=== PATIENT | male | born 1940 | race Caucasian/White ===

== ENCOUNTER 2017-03-16 23:29 | Emergency (ER) | payer OTHER, BC ==
[2017-03-16 23:44] VITALS: BP 142/77; PULSE 67; TEMP 97.9; BMI 31.4
--- NOTE | 2017-03-17 01:35 | PDOC ---
Attending Attestation - Resident Resident Name: Leilani Liz - ED Attending Attestation I have performed the following: I have examined & evaluated the patient, The case was reviewed & discussed with the resident, I agree w/resident's findings & plan - HPI HPI: 03/17/17 04:51 Pt comes with tinnitus that is worse than usual and he is nervous and wanted it checked out. - Physicial Exam PE: 03/17/17 04:51 Agree with resident exam - Medical Decision Making 03/17/17 04:[address] normal and CBC normal. Chemistry pending; lab called and they lost the specimen. Pt refusing to give another specimen. Signed out AMA.
--- NOTE | 2017-03-17 02:34 | PDOC ---
History of Present Illness - General Chief Complaint: Blood Pressure Problem Stated Complaint: BLOOD PRESSURE Time Seen by Provider: 03/17/17 01:54 EDT History Source: Patient - History of Present Illness Initial Comments: 03/17/17 02:29 Patient is a 76 yo M with PMHx of HTN, BPH, COPD, tinnitus, presented to the ED because of increased ringing in his ear and "hearing his heartbeat" in his ear that started around 11pm which resolved. Patient said the ringing in his ear is normal but was more intense today. Patient denies dizziness, sob, chest pain, weakness, visual deficits, runny nose and palpitations. Past History - Past Medical History Allergies/Adverse Reactions: Allergies Allergy/AdvReac Type Severity Reaction Status Date / Time No Known Allergies Allergy Verified 03/16/17 23:44 Home Medications: Ambulatory Orders Lisinopril [Prinivil -] 40 mg PO BID 11/10/11 Propranolol HCl [Inderal LA] 160 mg PO DAILY 11/10/11 Salmeterol/Fluticasone [Advair 250Mcg/50Mcg -] 1 each IH BID 11/10/11 Cholecalciferol (Vitamin D3) [Vitamin D3] 2,000 unit PO DAILY 09/15/15 Furosemide [Lasix -] 40 mg PO DAILY 09/15/15 Multivitamin with Minerals [Icaps Plus] 1 each PO DAILY 09/15/15 Nifedipine [Nifedipine ER] 60 mg PO HS 09/15/15 [place] Xtr/Zinc Picolin [[place] Ext 160 mg Cap] 1 each PO DAILY 09/25 Aspirin [Aspirin EC] 81 mg PO ASDIR #0 09/16/15 Omeprazole 20 mg PO DAILY 03/17/17 Cancer: Yes (SKIN) COPD: Yes GI Disorders: Yes (PEPTIC ULCER, DIVERTICILOSIS) Disorders: Yes (BPH, UROSEPSIS) HTN: Yes - Surgical History Cardiac Surgery: Yes (BILATERAL) - Suicide/Smoking/Psychosocial Hx Smoking Status: No Smoking History: Never smoked Have you smoked in the past 12 months: No Number of Cigarettes Smoked Daily: 0 If you are a former smoker, when did you quit?: 20 YEARS AGO Information on smoking cessation initiated: No Hx Alcohol Use: Yes (WINE WITH DINNER) Drug/Substance Use Hx: No Substance Use Type: None Review of Systems - Review of Systems Constitutional: No: Chills, Fever, Weakness HEENTM: Yes: Tinnitus. No: Recent change in vision, Ear Discharge, Nose Congestion Respiratory: No: Cough, Shortness of Breath, Wheezing Cardiac (ROS): No: Chest Pain, Lightheadedness, Palpitations, Syncope ABD/GI: No: Diarrhea, Nausea : No: Burning, Dysuria Neurological: No: Headache, Numbness, Tingling *Physical Exam - Vital Signs Last Vital Signs Temp Pulse Resp BP Pulse Ox 97.9 F 67 20 142/77 99 03/16/17 23:41 03/16/17 23:41 03/16/17 23:41 03/16/17 23:41 03/16/17 23:41 - Physical Exam Comments: 03/17/17 02:38 General: Patient is no acute distress, A/o x 3 HEENT: hearing aids, outer ears without lesions, tympanic canals normal with wax, no erythema or bulge. CV: RRR, No murmurs appreciated Lungs: CTA b/l no rales rhonchi or wheezing Abd: NT, ND, nomoactive bowel sounds Ext: No bruising, edema 03/17/17 04:08 ED Treatment Course - LABORATORY CBC & Chemistry Diagram: 03/17/17 02:40 03/17/17 02:40 - RADIOLOGY Radiology Studies Ordered: Category Date Time Status HEAD CT WITHOUT CONTRAST [CT] Stat CT Scan 03/17/17 02:05 Ordered Medical Decision Making - Medical Decision Making 03/17/17 04:08 #Worsening Tinnitus Heat CT CBC, CMP EKG 03/17/17 04:[address] unremarkable for acute changes CBC WNL EKG no signs of acute infarcts. 03/17/17 04:48 CMP hemolyzed and was re-ordered. Patient refused further care and left against medical advise. *DC/Admit/Observation/Transfer Diagnosis at time of Disposition: Tinnitus Qualifiers: Laterality: unspecified laterality Qualified Code(s): H93.19 - Tinnitus, unspecified ear - Discharge Dispostion Disposition: AGAINST MEDICAL ADVICE Admit: No - Referrals Referrals: Gianni Chacon MD [Primary Care Provider] - - Patient Instructions Additional Instructions: Call your doctor if you're symptoms are worsening. If it is an emergency, go to your nearest emergency department.
[2017-03-17 02:54] LABS: MCH 32.6 pg (25.7-33.7); MCHC 33.5 g/dl (32.0-35.9); MEAN CELL VOLUME 97.1 fl (80-96); MEAN PLT VOLUME 8.1 fl (7.5-11.1); PLATELET COUNT 185 K/MM3 (134-434); RDW 12.6 % (11.9-15.9); WHITE BLOOD COUNT 5.4 K/mm3 (4.0-10.0)
[2017-03-17 05:11] LABS: ANION GAP 10 (8-16); CO2 25 mmol/L (21-32); CREATININE 1.3 mg/dL (0.7-1.3); GLUCOSE,RANDOM 104 mg/dL (74-106)
[2017-03-17 05:12] LABS: ALBUMIN 3.7 g/dl (3.4-5.0); BILIRUBIN,TOTAL 0.5 mg/dL (0.2-1.0); CALCIUM 8.3 mg/dL (8.5-10.1); SGOT/AST 20 U/L (15-37); SGPT/ALT 27 U/L (12-78); TOT PROT 6.4 g/dl (6.4-8.2)
[2017-03-17 05:13] LABS: ALK PHOS 79 U/L (45-117)
--- NOTE | 2017-03-20 14:12 | EKG ---
Test Reason : Blood Pressure : / mmHG Vent. Rate : 064 BPM Atrial Rate : 064 BPM P-R Int : 174 ms QRS Dur : 080 ms QT Int : 396 ms P-R-T Axes : 049 -08 038 degrees QTc Int : 408 ms NORMAL SINUS RHYTHM NORMAL ECG WHEN COMPARED WITH ECG OF 10-NOV-2011 17:46, NO SIGNIFICANT CHANGE WAS FOUND Confirmed by EMEKA SANCHEZ MD ([id number]) on 03/20/2017 2:11:36 PM Referred By: Confirmed By:EMEKA SANCHEZ MD
== END 2017-03-17 05:42 | disposition left against medical advice (07) ==
LOC: JER 23:29
DX: H93.19 Tinnitus, unspecified ear (principal); I10 Essential (primary) hypertension; Z87.11 Personal history of peptic ulcer disease; Z85.828 Personal history of other malignant neoplasm of skin
CPT/HCPCS: 36415; 70450-TC; 80053; 85027; 93005; 93010; 99281-25; 99282-25

== ENCOUNTER 2017-12-22 08:57 | Inpatient (IN) | payer OTHER, BC ==
[2017-12-22 09:06] VITALS: BMI 30.7
--- NOTE | 2017-12-22 09:15 | PDOC ---
History of Present Illness - General Chief Complaint: Shortness of Breath Stated Complaint: COPD,AMS Time Seen by Provider: 12/22/17 09:14 History Source: Patient Exam Limitations: No Limitations - History of Present Illness Initial Comments: Mr. Coronado is a 77 yo M with a hx of HTN and COPD who presents to the emergency department with SOB. Per the patient, he had an URI 10 days ago. Since then, he ghas been feeling increasingly congested and increased SOB. On Saturday, he states he had weakness and the development of a fever and increasing weakness. He states he used his albuterol 3x on Saturday, 2x on Saturday, and 1x on day of presentation. Denies the following: chest pain, headaches, dizziness, lightheadness, abdominal pain, dysuria, diarrhea, nausea, vomiting, hematuria, and leg swelling/pain. Endorses fever. States he took 1x tylenol at approximately 8am. Denies hx of VA and CVA. Pmhx: HTN, COPD Shx: None Allergies: None Social hx: quit smoking 1995. Drinks alcohol socially. Denies drug use. 12/25/17 19:13 Past History - Past Medical History Allergies/Adverse Reactions: Allergies Allergy/AdvReac Type Severity Reaction Status Date / Time No Known Allergies Allergy Verified 12/22/17 08:59 Home Medications: Ambulatory Orders Lisinopril [Prinivil -] 40 mg PO BID 11/10/11 Propranolol HCl [Inderal LA] 160 mg PO DAILY 11/10/11 Salmeterol/Fluticasone [Advair 250Mcg/50Mcg -] 1 each IH BID 11/10/11 Cholecalciferol (Vitamin D3) [Vitamin D3] 2,000 unit PO DAILY 09/15/15 Furosemide [Lasix -] 40 mg PO DAILY 09/15/15 Multivitamin with Minerals [Icaps Plus] 1 each PO DAILY 09/15/15 Nifedipine [Nifedipine ER] 60 mg PO HS 09/15/15 Aspirin [Aspirin EC] 81 mg PO ASDIR #0 09/16/15 Omeprazole 20 mg PO DAILY 03/17/17 [place] Xtr/Zinc Picolin [[place] Capsule] 1 each PO DAILY 12/22/17 Cancer: Yes (SKIN) COPD: Yes GI Disorders: Yes (PEPTIC ULCER, DIVERTICILOSIS) Disorders: Yes (BPH, UROSEPSIS) HTN: Yes - Surgical History Cardiac Surgery: Yes (BILATERAL) - Suicide/Smoking/Psychosocial Hx Smoking Status: No Smoking History: Never smoked Have you smoked in the past 12 months: No Number of Cigarettes Smoked Daily: 0 If you are a former smoker, when did you quit?: 20 YEARS AGO Information on smoking cessation initiated: No Hx Alcohol Use: Yes (WINE WITH DINNER) Drug/Substance Use Hx: No Substance Use Type: None Review of Systems - Review of Systems Able to Perform ROS?: Yes Constitutional: Yes: Chills, Fever. No: Diaphoresis HEENTM: No: Recent change in vision, Nose Pain, Throat Pain, Mouth Pain Respiratory: Yes: Shortness of Breath. No: Cough, Hemoptysis Cardiac (ROS): No: Chest Pain, Edema, Lightheadedness, Palpitations, Syncope ABD/GI: No: Constipated, Diarrhea, Nausea, Rectal Bleeding, Vomiting, Tarry Stools : No: Burning, Dysuria, Hematuria Musculoskeletal: No: Back Pain Integumentary: No: Rash Neurological: No: Headache Psychiatric: No: Stressors Endocrine: No: Unexplained Weight Gain Hematologic/Lymphatic: No: Anemia *Physical Exam - Vital Signs Last Vital Signs Temp Pulse Resp BP Pulse Ox 101.1 F H 94 H 28 H 117/56 86 L 12/22/17 09:01 12/22/17 09:01 12/22/17 09:01 12/22/17 09:01 12/22/17 09:01 - Physical Exam General Appearance: Yes: Nourished, Appropriately Dressed, Mild Distress HEENT: positive: EOMI, TED, Normal Voice Neck: negative: Lymphadenopathy (R), Lymphadenopathy (L) Respiratory/Chest: positive: Other (tachypnea with decreased breath sounds bilaterally. ) Cardiovascular: positive: Regular Rhythm, S1, S2, Tachycardia Vascular Pulses: Dorsalis-Pedis (R): 3+, Doralis-Pedis (L): 3+ Gastrointestinal/Abdominal: positive: Normal Bowel Sounds. negative: Tender Lymphatic: negative: Adenopathy Musculoskeletal: positive: Normal Inspection. negative: CVA Tenderness Extremity: positive: Normal Capillary Refill, Normal Inspection Integumentary: positive: Normal Color, Dry, Warm Neurologic: positive: package designer II-XII NML intact, Fully Oriented, Alert, Normal Mood/ Affect, Motor Strength 5/5 Heart Score/ECG Review - ECG Intrepretation Comment:: vent rate: 89 bpm, UT 146 ms, QRS 72 ms. No changes from previous EKG. No acute changes suggesting VA. ED Treatment Course - LABORATORY CBC & Chemistry Diagram: 12/25/17 06:22 12/25/17 06:22 Medical Decision Making - Medical Decision Making 77 yo M with a hx of COPD and HTN presenting with SOB s/p URI 10 days ago with fever and increasing use of albuterol. ddx: VA, PE, PNA, COPD exacerbation, sepsis of other infectious etiology. Initial vitals: Initial Vital Signs Temp Pulse Resp BP Pulse Ox 101.1 F H 94 H 28 H 117/56 86 L 12/22/17 09:01 12/22/17 09:01 12/22/17 09:01 12/22/17 09:01 12/22/17 09:01 Work up: Laboratory Tests 12/22/17 12/22/17 12/22/17 09:20 09:20 09:20 WBC 16.1 H RBC 3.89 L Hgb 12.6 Hct 37.1 D MCV 95.3 MCH 32.3 MCHC 33.8 RDW 12.9 Plt Count 230 D MPV 8.3 Absolute Neuts (auto) 14.0 Neutrophils % 86.5 H Lymphocytes % 4.5 L Monocytes % 7.7 Eosinophils % 0.2 Basophils % 1.1 Nucleated RBC % 0 PT with INR 12.30 INR 1.09 PTT (Actin FS) 22.4 L Anticoagulation Therapy Puncture Site ABG pH ABG pCO2 at Pt Temp ABG pO2 at Pt Temp ABG HCO3 ABG O2 Sat (Measured) ABG O2 Content ABG Base Excess Arturo Test VBG pH 7.40 POC VBG pCO2 36.8 L POC VBG pO2 29.3 Mixed VBG HCO3 22.8 Carboxyhemoglobin Methemoglobin O2 Delivery Device Oxygen Flow Rate Vent Mode Vent Rate Mechanical Rate Pressure Support Vent Sodium Potassium Chloride Carbon Dioxide Anion Gap BUN Creatinine Creat Clearance w eGFR Random Glucose Lactic Acid Calcium Total Bilirubin AST ALT Alkaline Phosphatase Troponin I Total Protein Albumin 12/22/17 12/22/17 12/22/17 09:20 09:20 09:20 WBC RBC Hgb Hct MCV MCH MCHC RDW Plt Count MPV Absolute Neuts (auto) Neutrophils % Lymphocytes % Monocytes % Eosinophils % Basophils % Nucleated RBC % PT with INR INR PTT (Actin FS) Anticoagulation Therapy Puncture Site ABG pH ABG pCO2 at Pt Temp ABG pO2 at Pt Temp ABG HCO3 ABG O2 Sat (Measured) ABG O2 Content ABG Base Excess Arturo Test VBG pH POC VBG pCO2 POC VBG pO2 Mixed VBG HCO3 Carboxyhemoglobin Methemoglobin O2 Delivery Device Oxygen Flow Rate Vent Mode Vent Rate Mechanical Rate Pressure Support Vent Sodium Cancelled 140 Potassium Cancelled 4.5 Chloride Cancelled 107 Carbon Dioxide Cancelled 22 Anion Gap Cancelled 11 BUN Cancelled 41 H Creatinine Cancelled 2.0 H Creat Clearance w eGFR Cancelled 32.39 Random Glucose Cancelled 132 H D Lactic Acid 2.3 H* Calcium Cancelled 8.4 L Total Bilirubin Cancelled 1.1 H AST Cancelled 56 H D ALT Cancelled 47 D Alkaline Phosphatase Cancelled 109 Troponin I < 0.02 Total Protein Cancelled 5.9 L Albumin Cancelled 2.7 L 12/22/17 09:44 WBC RBC Hgb Hct MCV MCH MCHC RDW Plt Count MPV Absolute Neuts (auto) Neutrophils % Lymphocytes % Monocytes % Eosinophils % Basophils % Nucleated RBC % PT with INR INR PTT (Actin FS) Anticoagulation Therapy No Result Required. Puncture Site Right radial ABG pH 7.45 ABG pCO2 at Pt Temp 32.0 L ABG pO2 at Pt Temp 60.0 L ABG HCO3 22.2 ABG O2 Sat (Measured) 91.5 ABG O2 Content 14.6 L ABG Base Excess No Result Required. Arturo Test Positive VBG pH POC VBG pCO2 POC VBG pO2 Mixed VBG HCO3 Carboxyhemoglobin 2.1 H Methemoglobin 1.5 O2 Delivery Device No Result Required. Oxygen Flow Rate Yes Vent Mode No Result Required. Vent Rate No Result Required. Mechanical Rate No Result Required. Pressure Support Vent No Result Required. Sodium Potassium Chloride Carbon Dioxide Anion Gap BUN Creatinine Creat Clearance w eGFR Random Glucose Lactic Acid Calcium Total Bilirubin AST ALT Alkaline Phosphatase Troponin I Total Protein Albumin CXR showed right infiltrate. He was given duoneb TID and steroids. In addition, given his age, presenting symptoms, and medical hx of COPD, we placed him on BIPAP due to these populations deteriorating rapidly when on non rebreather. He was admitted through Dr. Chacon. 12/25/17 19:52 12/25/17 19:54 *DC/Admit/Observation/Transfer Diagnosis at time of Disposition: Pneumonia, COPD exacerbation, Fever, SIRS (systemic inflammatory response syndrome) - Discharge Dispostion Condition at time of disposition: Stable - Referrals - Patient Instructions - Post Discharge Activity
[2017-12-22] MEDS ORDERED: methylPREDNISolone NA SUCC 125 MG/2 ML VIAL IVPUSH ONE (09:22)
[2017-12-22] MEDS ORDERED: ACETAMINOPHEN 1000 MG/100 ML VIAL (NON FORMULARY) IVPB ONE (09:23)
[2017-12-22] MEDS: ALBUTEROL SO4 2.5/IPRATROPIUM 0.5 INH SOL 3 ML VIAL.NEB. NEB SCH ×6 (09:30→21:00)
[2017-12-22] MEDS ORDERED: ALBUTEROL SO4 2.5/IPRATROPIUM 0.5 INH SOL 3 ML VIAL.NEB. NEB ONE ×2 (09:31→10:02)
[2017-12-22 09:35] LABS: BASO % 1.1 % (0-2.0); EOS % 0.2 % (0-4.5); HEMATOCRIT 37.1 % (35.4-49); HEMOGLOBIN 12.6 GM/dL (11.7-16.9); LYMPH % 4.5 % (8-40); MCH 32.3 pg (25.7-33.7); MCHC 33.8 g/dl (32.0-35.9); MEAN CELL VOLUME 95.3 fl (80-96); MEAN PLT VOLUME 8.3 fl (7.5-11.1); MONO % 7.7 % (3.8-10.2); NEUT % 86.5 % (42.8-82.8); PLATELET COUNT 230 K/MM3 (134-434); RBC 3.89 M/mm3 (4.00-5.60); RDW 12.9 % (11.9-15.9); WHITE BLOOD COUNT 16.1 K/mm3 (4.0-10.0)
[2017-12-22 09:39] LABS: VENOUS PC02 36.8 mmHg (38-52); VENOUS PH 7.4 (7.32-7.42); VENOUS PO2 29.3 mmHg (28-48)
[2017-12-22 09:48] LABS: CHLORIDE 107 mmol/L (98-107); POTASSIUM 4.5 mmol/L (3.5-5.1); SODIUM 140 mmol/L (136-145)
[2017-12-22] MEDS ORDERED: ACETAMINOPHEN INJECTION 100 ML IVPB ONE (09:49)
--- NOTE | 2017-12-22 09:52 | PDOC ---
Attending Attestation - Resident Resident Name: Tevin Alejo - ED Attending Attestation I have performed the following: I have examined & evaluated the patient, The case was reviewed & discussed with the resident, I agree w/resident's findings & plan, Exceptions are as noted - HPI HPI: 12/22/17 10:41 The patient is a 77 year old male, with a significant past medical history of HTN, COPD, and BPH, who presents to the emergency department with, 3 days of worsening shortness of breath. As per patient, he has been feeling increasingly short of breath with associated fevers, weakness, and congestion. The patient used his albuterol inhaler, without relief. He reports taking Tylenol 2 hours ago for his symptoms. He was recently diagnosed with a URI 10 days ago. He denies any recent hospitalizations. He denies being on antibiotics within the past 6 months. No recent travel. He denies any recent headache or dizziness. He denies any recent nausea, vomit, diarrhea or constipation. He denies any recent chest pain. He denies any recent dysuria, frequency, urgency or hematuria. Allergies: NKA Social History: Former smoker (Quit 20 years ago). Social drinker. Denies recreational drug use. Primary Care Physician: Dr. Chacon - Physicial Exam PE: 12/22/17 10:42 GENERAL: Febrile. Awake, alert, and fully oriented, in mild resp distress HEAD: No signs of trauma EYES: PERRLA, EOMI, sclera anicteric, conjunctiva clear ENT: Auricles normal inspection, hearing grossly normal, nares patent, oropharynx clear without exudates. Moist mucosa NECK: Normal ROM, supple, no lymphadenopathy, JVD, or masses +LUNGS: Bilateral crackles on the right worse than the left. Breath sounds equal. No wheezes. Tachypneic to 30 HEART: Regular rate and rhythm, normal S1 and S2, no murmurs, rubs or gallops ABDOMEN: Soft, nontender, normoactive bowel sounds. No guarding, no rebound. No masses EXTREMITIES: Normal range of motion, no edema. No clubbing or cyanosis. No cords , erythema, or tenderness BACK: No midline spinal tenderness in cervical/thoracic/lumbar region NEUROLOGICAL: Normal speech, cranial nerves intact, negative pronator drift, 5/ 5 strength in all 4 extremities, normal sensation to light touch in all 4 extremities, normal cerebellar exam, normal gait, normal reflexes and tone SKIN: Warm, Dry, normal turgor, no rashes or lesions noted. - Critical Care Time Total Critical Care Time: 30 Critical Care Statement: The care of this patient involved high complexity decision making to prevent further life threatening deterioration of the patient 's condition and/or to evaluate & treat vital organ system(s) failure or risk of failure. - Medical Decision Making 12/22/17 09:58 77yo M with MMP including COPD presents to the ED with SOB, cough fever. PT is hypoxic, tachypneic, in mild resp distress. Lungs with crackles b/l R>L. Clinical story consistent with SIRS due to PNA. No recent hosp or NH, will cover with ctx and azithro. Pt currently on bipap for resp support. WIll admit. 12/22/17 10:20 WBC 16 ABG wnl Pt on bipap for support Case discussed with Dr. Chacon, pt admitted to in tele Case discussed in detail with admitting physician including history, physical exam and ancillary studies. Admitting physician has assumed care for the patient, will follow all pending diagnostics and will complete the evaluation and treatment. Discharge Disposition - Diagnosis Pneumonia, COPD exacerbation, Fever, SIRS (systemic inflammatory response syndrome) - Discharge Dispostion Condition at time of disposition: Stable Last Admission D/C Date: 06/09/07 Decision to Admit order: Yes - Referrals Referrals: Gianni Chacon MD [Primary Care Provider] - - Patient Instructions - Post Discharge Activity
[2017-12-22 09:54] LABS: INR 1.09 (0.83-1.09); PROTHROMBIN TIME (PATIENT) 12.3 SEC (9.7-13.0)
[2017-12-22 09:55] LABS: ALBUMIN 2.7 g/dl (3.4-5.0); ANION GAP 11 (8-16); BILIRUBIN,TOTAL 1.1 mg/dL (0.2-1.0); BLOOD UREA NITROGEN 41 mg/dL (7-18); CALCIUM 8.4 mg/dL (8.5-10.1); CO2 22 mmol/L (21-32); GLUCOSE,RANDOM 132 mg/dL (74-106); SGOT/AST 56 U/L (15-37); SGPT/ALT 47 U/L (12-78); TOT PROT 5.9 g/dl (6.4-8.2)
[2017-12-22 09:56] LABS: ACTIVATED PTT 22.4 SECONDS (25.2-36.5)
[2017-12-22 09:57] LABS: ALK PHOS 109 U/L (45-117)
[2017-12-22] MEDS ORDERED: AZITHROMYCIN IVPB 500 MG in DEXTROSE 5%-WATER - 250 ML IVPB ONE (09:58)
[2017-12-22] MEDS ORDERED: CEFTRIAXONE 1,000 MG in DEXTROSE 5%-WATER - 50 ML IVPB ONE (09:58)
[2017-12-22] MEDS ORDERED: CEFTRIAXONE 1 GM/50 ML BAG ONE (10:03)
[2017-12-22] MEDS ORDERED: AZITHROMYCIN IVPB 250 ML IVPB ONE (10:03)
[2017-12-22] MEDS ORDERED: SODIUM CHLORIDE 1,000 ML IV STA (10:07)
[2017-12-22 10:16] LABS: ARTERIAL BLD GAS O2 SATURATION 91.5 % (90-98.9); ARTERIAL BLOOD GAS pH 7.45 (7.35-7.45)
[2017-12-22 10:18] LABS: ALLENS TEST POSITIVE; CARBOXYHEMOGLOBIN 2.1 gm% (0.5-2.0)
[2017-12-22] MEDS ORDERED: ALBUTEROL SO4 2.5/IPRATROPIUM 0.5 INH SOL 3 ML VIAL.NEB. NEB PRN (11:41)
[2017-12-22] MEDS ORDERED: ASPIRIN COATED 81 MG TABLET.EC PO SCH (11:45)
--- NOTE | 2017-12-22 11:55 | HP ---
Admitting History and Physical - Admission Chief Complaint: altered mental status, cough History of Present Illness: 77 yo male, h/o HTN, COPD (on advair and prn albuterol at home), presents with several days of feeling off. He had been travelling in [place] and was getting physically tired from all the walking. was also sick with a cough/ cold while on the trip. When they got home he had coughing, congestion as well. Symptoms started a week or so ago. He started to feel a little better, so thought it would go away, but 3 days ago notes that while cutting a salad at home she found him slumped over on the counter, although he was awake, and seemed disoriented, as he was saying he had to cut the salad, but was already made. Since then had 2 epidoses of weakness in legs with difficulty getting up from couch and seemed "frozen" over the toilet last night, where he could not move. In ED O2 sat was in 80's and found to have pneumonia on xray. Started on Bipap in ED and oxygen saturation at 97 now. History Source: Patient, Family Member, Medical Record Limitations to Obtaining History: No Limitations - Past Medical History CLIENT SOLUTIONS SPECIALIST: Yes: Other (essential tremor) Cardiovascular: Yes: HTN, Other (venous insufficiency with LE edema) Pulmonary: Yes: COPD Gastrointestinal: Yes: Diverticulosis, Peptic Ulcer Disease Renal/: Yes: BPH, UTI (h/o) - Smoking History Smoking history: Former smoker Have you smoked in the past 12 months: No Aproximately how many cigarettes per day: 0 If you are a former smoker, when did you quit?: 20 YEARS AGO - Alcohol/Substance Use Hx Alcohol Use: Yes (WINE WITH DINNER) - Social History Occupation: prior health administrator Other Social History: , 2 dtrs Home Medications - Allergies Allergies/Adverse Reactions: Allergies Allergy/AdvReac Type Severity Reaction Status Date / Time No Known Allergies Allergy Verified 12/22/17 08:59 - Home Medications Home Medications: Ambulatory Orders Lisinopril [Prinivil -] 40 mg PO BID 11/10/11 Propranolol HCl [Inderal LA] 160 mg PO DAILY 11/10/11 Salmeterol/Fluticasone [Advair 250Mcg/50Mcg -] 1 each IH BID 11/10/11 Cholecalciferol (Vitamin D3) [Vitamin D3] 2,000 unit PO DAILY 09/15/15 Furosemide [Lasix -] 40 mg PO DAILY 09/15/15 Multivitamin with Minerals [Icaps Plus] 1 each PO DAILY 09/15/15 Nifedipine [Nifedipine ER] 60 mg PO HS 09/15/15 Aspirin [Aspirin EC] 81 mg PO ASDIR #0 09/16/15 Omeprazole 20 mg PO DAILY 03/17/17 [place] Xtr/Zinc Picolin [[place] Capsule] 1 each PO DAILY 12/22/17 Family Disease History - Family Disease History Family Disease History: Diabetes: Father, CA: Mother (melanoma) Review of Systems - Review of Systems Constitutional: reports: Lethargy, Weakness Eyes: reports: No Symptoms HENT: denies: Difficult Swallowing, Epistaxis, Throat Pain Neck: denies: Decreased ROM Cardiovascular: denies: Chest Pain, Palpitations Gastrointestinal: denies: Abdominal Pain, Diarrhea, Melena, Nausea, Vomiting Genitourinary: denies: Discharge, Dysuria, Flank Pain Physical Examination Vital Signs: Vital Signs Temperature 98.5 F 12/22/17 11:19 Pulse Rate 69 12/22/17 11:19 Respiratory Rate 20 12/22/17 11:19 Blood Pressure 105/53 12/22/17 11:19 O2 Sat by Pulse Oximetry (%) 97 12/22/17 11:19 Constitutional: Yes: No Distress, Calm Eyes: Yes: Conjunctiva Clear, EOM Intact, PERRL HENT: Yes: Atraumatic, Normocephalic Neck: Yes: Supple, Trachea Midline Cardiovascular: Yes: Regular Rate and Rhythm, S1, S2. No: Murmur Respiratory: Yes: Rhonchi (bilaterally) Gastrointestinal: Yes: Normal Bowel Sounds, Soft, Abdomen, Obese. No: Distention, Tenderness Edema: Yes Edema: LLE: 1+, RLE: 1+ Neurological: Yes: Alert, Oriented Labs: CBC, BMP 12/22/17 09:20 12/22/17 09:20 Imaging - Results Chest X-ray: Report Reviewed (right sided infiltrate and blunting of the angle, hiatal hernia) Problem List - Problems (1) Pneumonia Assessment/Plan: -started on ceftriaxone and zithromax for CAP Code(s): J18.9 - PNEUMONIA, UNSPECIFIED ORGANISM (2) SIRS (systemic inflammatory response syndrome) Assessment/Plan: -started on abx for pneumonia -oxygen for hypoxia Code(s): R65.10 - SIRS OF NON-INFECTIOUS ORIGIN W/O ACUTE ORGAN DYSFUNCTION (3) Altered mental status Assessment/Plan: -likely due to sepsis/ hypoxia, but will check CT head Code(s): R41.82 - ALTERED MENTAL STATUS, UNSPECIFIED (4) COPD (chronic obstructive pulmonary disease) Assessment/Plan: -nebs, start solumedrol as well, O2 -to be evaluated by pulmonary Code(s): J44.9 - CHRONIC OBSTRUCTIVE PULMONARY DISEASE, UNSPECIFIED (5) Hypertension Assessment/Plan: -cont lisinopril, inderal, procardia Code(s): I10 - ESSENTIAL (PRIMARY) HYPERTENSION
[2017-12-22 19:32] LABS: URINE APPEARANCE CLEAR; URINE BILIRUBIN NEGATIVE (<2.0 mg/dL); URINE COLOR YELLOW; URINE GLUCOSE (UA) NEGATIVE (NEGATIVE); URINE KETONE NEGATIVE (NEGATIVE); URINE LEUK ESTERASE NEGATIVE (NEGATIVE); URINE NITRITE NEGATIVE (NEGATIVE); URINE UROBILINOGEN NEGATIVE mg/dL (0.2-1.0)
[2017-12-22 19:33] LABS: URINE PROTEIN 1+ (NEGATIVE)
[2017-12-22 19:43] LABS: EPI CELLS RARE /HPF (FEW); URINE MUCUS RARE
[2017-12-22] MEDS: BUDESONIDE/FORMETEROL FUMARATE 80/4.5 mcg INHALER IH SCH ×2 (22:41→22:46)
[2017-12-22] MEDS: LISINOPRIL 20 MG TABLET (FP) PO SCH (22:41)
[2017-12-22] MEDS: NIFEdipine E.R 60 MG TABLET (UD) PO SCH (22:42)
[2017-12-22] MEDS: methylPREDNISolone NA SUCC 40 MG/1 ML VIAL IVPB SCH (22:42)
[2017-12-23 07:37] LABS: BASO % 0.3 % (0-2.0); HEMATOCRIT 33.1 % (35.4-49); HEMOGLOBIN 11.5 GM/dL (11.7-16.9); LYMPH % 2.8 % (8-40); MCH 33.1 pg (25.7-33.7); MCHC 34.6 g/dl (32.0-35.9); MEAN CELL VOLUME 95.6 fl (80-96); MEAN PLT VOLUME 8.1 fl (7.5-11.1); MONO % 2.2 % (3.8-10.2); NEUT % 94.7 % (42.8-82.8); PLATELET COUNT 215 K/MM3 (134-434); RBC 3.47 M/mm3 (4.00-5.60); RDW 12.9 % (11.9-15.9); WHITE BLOOD COUNT 16.4 K/mm3 (4.0-10.0)
[2017-12-23] MEDS: ALBUTEROL SO4 2.5/IPRATROPIUM 0.5 INH SOL 3 ML VIAL.NEB. NEB SCH ×2 (07:46→11:13)
[2017-12-23 07:53] LABS: CHLORIDE 108 mmol/L (98-107); POTASSIUM 4.1 mmol/L (3.5-5.1); SODIUM 141 mmol/L (136-145)
[2017-12-23 07:57] LABS: ALBUMIN 2.3 g/dl (3.4-5.0); ALK PHOS 94 U/L (45-117); ANION GAP 10 (8-16); BILIRUBIN,TOTAL 0.4 mg/dL (0.2-1.0); BLOOD UREA NITROGEN 51 mg/dL (7-18); CALCIUM 8.5 mg/dL (8.5-10.1); CO2 23 mmol/L (21-32); CREATININE 1.7 mg/dL (0.7-1.3); GLUCOSE,RANDOM 178 mg/dL (74-106); SGOT/AST 74 U/L (15-37); SGPT/ALT 70 U/L (12-78); TOT PROT 5.4 g/dl (6.4-8.2)
[2017-12-23] MEDS ORDERED: PT OWN MED DRAWER 7, Y5N ONE (09:01)
[2017-12-23] MEDS ORDERED: cefTRIAXone SODIUM 1 GM VIAL ONE (09:01)
[2017-12-23] MEDS ORDERED: DEXTROSE 5%-WATER - 50 ML IVPB ONE (09:02)
[2017-12-23] MEDS: methylPREDNISolone NA SUCC 40 MG/1 ML VIAL IVPB SCH ×3 (09:38→21:40)
[2017-12-23] MEDS: AZITHROMYCIN IVPB 500 MG in DEXTROSE 5%-WATER - 250 ML IVPB SCH (09:38)
[2017-12-23] MEDS: CEFTRIAXONE 1 GM in DEXTROSE 5%-WATER - 50 ML IVPB SCH (09:38)
[2017-12-23] MEDS: ENOXAPARIN NA (PORCINE) 40 MG/0.4 ML DISP.SYRIN SQ SCH (09:39)
[2017-12-23] MEDS: MULTIVITAMINS THER W-MINERALS COMBO TABLET (FP) PO SCH (09:40)
[2017-12-23] MEDS: FUROSEMIDE 40 MG TABLET (FP) PO SCH (09:40)
[2017-12-23] MEDS: LISINOPRIL 20 MG TABLET (FP) PO SCH ×2 (09:40→21:40)
[2017-12-23] MEDS: PANTOPRAZOLE 20 MG TABLET (FP) PO SCH (09:40)
[2017-12-23] MEDS: ASPIRIN COATED 81 MG TABLET.EC PO SCH (09:40)
[2017-12-23] MEDS: CHOLECALCIFEROL (VITAMIN D3) 1,000 UNIT TABLET (FP) PO SCH (09:41)
--- NOTE | 2017-12-23 10:24 | PN ---
Progress Note, Physician Chief Complaint: Pt sitting in bed in no acute distress. reports breathing better. coughing up brown sputum. Otherwise, denies chest pain, sob, n/v/d - Current Medication List Current Medications: Active Medications Albuterol/Ipratropium (Duoneb -) 1 amp NEB RQID [facility] Last Admin: 12/23/17 07:46 Dose: 1 amp Albuterol/Ipratropium (Duoneb -) 1 amp NEB Q4H PRN PRN Reason: SHORTNESS OF BREATH Aspirin (Ecotrin -) 81 mg PO DAILY [facility] Last Admin: 12/23/17 09:40 Dose: 81 mg Budesonide/Formoterol Fumarate (Symbicort 80/4.5mcg -) 2 puff IH BID [facility] Last Admin: 12/22/17 22:46 Dose: Not Given Cholecalciferol (Vitamin D3 -) 2,000 unit PO DAILY [facility] Last Admin: 12/23/17 09:41 Dose: 2,000 unit Enoxaparin Sodium (Lovenox -) 40 mg SQ DAILY [facility] Last Admin: 12/23/17 09:39 Dose: 40 mg Furosemide (Lasix -) 40 mg PO DAILY [facility] Last Admin: 12/23/17 09:40 Dose: 40 mg Azithromycin 500 mg/ Dextrose 250 mls @ 250 mls/hr IVPB DAILY [facility] Last Admin: 12/23/17 09:38 Dose: 250 mls/hr Ceftriaxone Sodium 1 gm/ (Dextrose) 50 mls @ 100 mls/hr IVPB DAILY [facility] Last Admin: 12/23/17 09:38 Dose: 100 mls/hr Lisinopril (Prinivil) 40 mg PO BID [facility] Last Admin: 12/23/17 09:40 Dose: 40 mg Methylprednisolone Sodium Succinate (Solu-Medrol -) 80 mg IVPB BID [facility] Last Admin: 12/23/17 09:38 Dose: 80 mg Multivitamins/Minerals (Theragran-M) 1 each PO DAILY [facility] Last Admin: 12/23/17 09:40 Dose: 1 each Nifedipine (Procardia Xl -) 60 mg PO HS [facility] Last Admin: 12/22/17 22:42 Dose: 60 mg Pantoprazole Sodium (Protonix -) 20 mg PO DAILY [facility] Last Admin: 12/23/17 09:40 Dose: 20 mg Propranolol HCl (Inderal La -) 160 mg PO DAILY [facility] Last Admin: 12/23/17 09:41 Dose: 160 mg - Objective Vital Signs: Vital Signs Temperature 97.9 F 12/23/17 07:53 Pulse Rate 86 12/23/17 07:53 Respiratory Rate 20 12/23/17 08:00 Blood Pressure 108/54 12/23/17 07:53 O2 Sat by Pulse Oximetry (%) 95 12/23/17 08:00 Constitutional: Yes: Well Nourished, No Distress, Calm Cardiovascular: Yes: WNL, Regular Rate and Rhythm. No: Gallop, Murmur Respiratory: Yes: Regular, Diminished, On Nasal O2, Poor Air Entry, SOB on Exertion. No: Tachypnea, Wheezes Gastrointestinal: Yes: WNL, Normal Bowel Sounds, Soft. No: Distention, Tenderness Genitourinary: Yes: WNL Musculoskeletal: Yes: WNL Edema: Yes Edema: LLE: 2+, RLE: 2+ Neurological: Yes: Alert, Oriented, Pre-Existing Deficit (essential tremor), Tremors Psychiatric: Yes: WNL, Alert, Oriented Labs: CBC, BMP 12/23/17 06:00 12/23/17 06:22 INR, PTT INR 1.09 (0.83-1.09) 12/22/17 09:20 Problem List - Problems (1) CAP (community acquired pneumonia) Assessment/Plan: RLL infiltrate wbc 16k, requiring O2 to maintain O2sat>92% continue ceftriaxone, azithromycin blood cultures neg/sputum culture ordered urine legionella neg IS monitor Code(s): J18.9 - PNEUMONIA, UNSPECIFIED ORGANISM Qualifiers: Laterality: right Lung location: lower lobe of lung Qualified Code(s): J18.1 - Lobar pneumonia, unspecified organism (2) Acute metabolic encephalopathy Assessment/Plan: improved suspect secondary to pna as above head ct neg Code(s): G93.41 - METABOLIC ENCEPHALOPATHY (3) Acute hypoxemic respiratory failure Assessment/Plan: O2sat in 80s during admission improving Code(s): J96.01 - ACUTE RESPIRATORY FAILURE WITH HYPOXIA (4) COPD exacerbation Assessment/Plan: acute on chronic requiring O2 via nc nebs/medrol pulm following Code(s): J44.1 - CHRONIC OBSTRUCTIVE PULMONARY DISEASE W (ACUTE) EXACERBATION (5) Acute kidney injury Assessment/Plan: suspect prerenal improving ivf monitor Code(s): N17.9 - ACUTE KIDNEY FAILURE, UNSPECIFIED (6) Hypertension Assessment/Plan: controlled continue lisinopril, propranolol, nifedipine hold lasix monitor Code(s): I10 - ESSENTIAL (PRIMARY) HYPERTENSION Qualifiers: Hypertension type: essential hypertension Qualified Code(s): I10 - Essential (primary) hypertension
[2017-12-23 11:43] LABS: ACANTHOCYTES 0; ANISOCYTOSIS 0; HELMET CELLS 0; HOWELL-JOLLY BODIES 0; MACROCYTOSIS 0; OVALOCYTE 0; PLATELET ESTIMATE NORMAL; ROULEAU 0; SICKELED CELLS 0; TARGET CELLS 0; TEAR DROP CELLS 0; TOXIC GRANULATION 0
--- NOTE | 2017-12-23 12:05 | PN ---
Progress Note (short form) - Note Progress Note: PULMONARY CONSULATATION DICTATED 12/23/17 IMP ACUTE HYPOXEMIC RESPIRATORY FAILURE PNEUMONIA COPD SIRS ALTERED MENTAL STATUS PEDRITO PLAN IV ABX SUPPLEMENTAL O2 INHALED BRONCHODILATORS SHORT COURSE OF MEDROL IVF CHEST CT LEGIONELLA URINARY ANTIGEN CULTURES MONITOR LYTES/RENAL FUNCTION DR DAMON Problem List - Problems (1) Acute kidney injury Code(s): N17.9 - ACUTE KIDNEY FAILURE, UNSPECIFIED (2) Acute metabolic encephalopathy Code(s): G93.41 - METABOLIC ENCEPHALOPATHY (3) Altered mental status Code(s): R41.82 - ALTERED MENTAL STATUS, UNSPECIFIED (4) CAP (community acquired pneumonia) Code(s): J18.9 - PNEUMONIA, UNSPECIFIED ORGANISM (5) COPD exacerbation Code(s): J44.1 - CHRONIC OBSTRUCTIVE PULMONARY DISEASE W (ACUTE) EXACERBATION (6) Fever Code(s): R50.9 - FEVER, UNSPECIFIED (7) Hypertension Code(s): I10 - ESSENTIAL (PRIMARY) HYPERTENSION Qualifiers: Hypertension type: essential hypertension Qualified Code(s): I10 - Essential (primary) hypertension (8) SIRS (systemic inflammatory response syndrome) Code(s): R65.10 - SIRS OF NON-INFECTIOUS ORIGIN W/O ACUTE ORGAN DYSFUNCTION (9) Acute hypoxemic respiratory failure Code(s): J96.01 - ACUTE RESPIRATORY FAILURE WITH HYPOXIA
[2017-12-23] MEDS: BUDESONIDE/FORMETEROL FUMARATE 80/4.5 mcg INHALER IH SCH ×3 (12:39→21:40)
--- NOTE | 2017-12-23 14:09 | EKG ---
Test Reason : Blood Pressure : / mmHG Vent. Rate : 089 BPM Atrial Rate : 089 BPM P-R Int : 146 ms QRS Dur : 072 ms QT Int : 332 ms P-R-T Axes : 054 -22 054 degrees QTc Int : 403 ms NORMAL SINUS RHYTHM INFERIOR INFARCT , AGE UNDETERMINED CANNOT RULE OUT ANTERIOR INFARCT , AGE UNDETERMINED ABNORMAL ECG WHEN COMPARED WITH ECG OF 17-MAR-2017 03:47, NO SIGNIFICANT CHANGE WAS FOUND Confirmed by VINNIE RIVERA MD ([id number]) on 12/23/2017 2:09:11 PM Referred By: Confirmed By:VINNIE RIVERA MD
[2017-12-23] MEDS ORDERED: SODIUM CHLORIDE 1,000 ML IV SCH (14:45)
--- NOTE | 2017-12-23 16:39 | CONS ---
DATE OF CONSULTATION: 12/23/2017 REFERRING PHYSICIAN: Gianni Chacon MD The patient is a 77-year-old white male with a past medical history of hypertension, COPD, BPH, at [facility] with complaint of increasing shortness of breath, cough, chest congestion, and fever. Patient was recently visiting the [facility], initially he was in [place], [place], where the temperature was an oppressive 106 degrees, and walking outside, as well as then going to [place] and [facility] and walking in hot weather. He stated at the time he felt very tired from all the activity. Apparently his is also sick with a cough and cold while on the trip. When they got home, the patient started developing cough, chest congestion, and fever up to 102. Apparently also 3 days ago, while cutting a salad, the patient apparently slumped over, although he was awake, and he was disoriented. He initially did not seek medical attention. Yesterday he started developing increasing shortness of breath, cough, and chest congestion, at which time he presented to the emergency room. Before going to the emergency room, apparently he had 2 episodes of weakness in the legs and had difficulty getting up from a couch and felt frozen and on the toilet was not able to move. EMS was called. The patient was then brought to the emergency room. In the ER, he was noted to be hypoxic with an O2 saturation in the 80s on room air. He had a chest x-ray performed, which revealed a right lower lobe and right middle lobe infiltrate. He was placed on BiPAP and oxygen improved to 97%, at which time he was transferred up to medical floor for management. He denies any chest pain, nausea vomiting, diaphoresis. He denies hemoptysis. He does state that he has a cough productive initially of greenish sputum, now it is brown, and had a few episodes of hemoptysis. He denies any history of occupational exposure to chemicals or fumes. He states he is normally maintained on Advair inhaler, which he responds well to. He normally does not get significantly dyspneic with exertion. He denies any history of DVT or PE in the past. Past medical history, again, includes hypertension, chronic venous insufficiency of the left lower extremities, essential tremor, diverticulosis, peptic ulcer disease, BPH, UTI, COPD, hypertension. REVIEW OF SYSTEMS: Positive for cough, positive for chest congestion, positive shortness of breath, positive fever, positive chills. No chest pain, no palpitation, no nausea, no vomiting. No abdominal pain. Current medications include Symbicort 80/4.5, Solu-Medrol 80 b.i.d., Prinivil, Zithromax, ceftriaxone, Lovenox, DuoNeb, Inderal, Procardia, Lasix, Theragran, Ecotrin, Protonix, and Vitamin D3. PHYSICAL EXAMINATION: General: The patient is a well-developed, well-nourished male, awake, alert, currently in no acute distress. Vital Signs: He is afebrile. Blood pressure is 108/54. Respiratory rate 20. O2 saturation 91% to 92% on 4 L. HEENT: Normocephalic, atraumatic. Neck: Supple. Heart: Regular, S1, S2. Chest: Diminished breath sounds bilaterally with a few crackles at the right base. Abdomen: Soft. Bowel sounds are positive. Extremities: Bilateral extremity edema. LABORATORY DATA: WBC 16.4, hemoglobin 11.5, hematocrit 33.1, with a platelet count of 215,000, 97 polys, 2 lymphs, and 2 monos. INR is 1.09. Blood gas: pH 7.45, pCO2 of 32, a pO2 of 60, bicarbonate of 22, saturation 91, that was on unknown quantity of oxygen. BUN 51, creatinine 1.7, lactate level initially was 2.3, currently now at 1.6. Chest x-ray reveals right lower lobe infiltrate with blunting of the right costophrenic angle. IMPRESSION: Acute hypoxemic respiratory failure, likely secondary to: 1. Right lower lobe pneumonia. 2. Advanced chronic obstructive pulmonary disease. 3. Systemic inflammatory response syndrome secondary to pneumonia. 4. Acute kidney injury. 5. Altered mental status, likely due to sepsis and hypoxemia, currently improved. 6. Chronic obstructive pulmonary disease. 7. Hypertension. PLAN: Continue inhaled bronchodilator, supplemental O2, broad-spectrum antibiotics. Obtain sputum for C&S and cytology. CT scan of the chest. DVT prophylaxis. Obtain cultures, Legionella urinary antigen. Mitch [id number]
[2017-12-23] MEDS: NIFEdipine E.R 60 MG TABLET (UD) PO SCH (21:40)
[2017-12-24] MEDS: methylPREDNISolone NA SUCC 40 MG/1 ML VIAL IVPB SCH ×4 (03:30→21:16)
[2017-12-24 07:39] LABS: BASO % 0.2 % (0-2.0); HEMATOCRIT 34.2 % (35.4-49); HEMOGLOBIN 11.8 GM/dL (11.7-16.9); LYMPH % 3.3 % (8-40); MCH 32.8 pg (25.7-33.7); MCHC 34.6 g/dl (32.0-35.9); MEAN PLT VOLUME 8.1 fl (7.5-11.1); NEUT % 93.5 % (42.8-82.8); PLATELET COUNT 279 K/MM3 (134-434); WHITE BLOOD COUNT 17.6 K/mm3 (4.0-10.0)
[2017-12-24 08:01] LABS: CHLORIDE 111 mmol/L (98-107); POTASSIUM 4.4 mmol/L (3.5-5.1); SODIUM 144 mmol/L (136-145)
[2017-12-24] MEDS ORDERED: PT OWN MED DRAWER 7, Y5N ONE (08:02)
[2017-12-24 08:05] LABS: ANION GAP 9 (8-16); BLOOD UREA NITROGEN 52 mg/dL (7-18); CALCIUM 8.6 mg/dL (8.5-10.1); CO2 24 mmol/L (21-32); CREATININE 1.5 mg/dL (0.7-1.3); GLUCOSE,RANDOM 154 mg/dL (74-106)
[2017-12-24] MEDS ORDERED: cefTRIAXone SODIUM 1 GM VIAL ONE (08:38)
[2017-12-24] MEDS ORDERED: DEXTROSE 5%-WATER - 50 ML IVPB ONE (08:39)
[2017-12-24] MEDS: LISINOPRIL 20 MG TABLET (FP) PO SCH ×2 (09:33→21:16)
[2017-12-24] MEDS: ASPIRIN COATED 81 MG TABLET.EC PO SCH (09:33)
[2017-12-24] MEDS: PANTOPRAZOLE 20 MG TABLET (FP) PO SCH (09:33)
[2017-12-24] MEDS: CHOLECALCIFEROL (VITAMIN D3) 1,000 UNIT TABLET (FP) PO SCH (09:33)
[2017-12-24] MEDS: MULTIVITAMINS THER W-MINERALS COMBO TABLET (FP) PO SCH (09:33)
[2017-12-24] MEDS: ENOXAPARIN NA (PORCINE) 40 MG/0.4 ML DISP.SYRIN SQ SCH (09:34)
[2017-12-24] MEDS: AZITHROMYCIN IVPB 500 MG in DEXTROSE 5%-WATER - 250 ML IVPB SCH (09:35)
[2017-12-24] MEDS: CEFTRIAXONE 1 GM in DEXTROSE 5%-WATER - 50 ML IVPB SCH (09:35)
[2017-12-24] MEDS: BUDESONIDE/FORMETEROL FUMARATE 80/4.5 mcg INHALER IH SCH ×2 (09:36→21:34)
--- NOTE | 2017-12-24 10:31 | PN ---
Progress Note, Physician Chief Complaint: Pt sitting in bed in no acute distress. reports breathing is improving, still has mild sob upon exertion. productive cough. Otherwise, denies chest pain, sob , n/v/d - Current Medication List Current Medications: Active Medications Albuterol/Ipratropium (Duoneb -) 1 amp NEB Q4H PRN PRN Reason: SHORTNESS OF BREATH Last Admin: 12/24/17 09:04 Dose: 1 amp Aspirin (Ecotrin -) 81 mg PO DAILY [facility] Last Admin: 12/24/17 09:33 Dose: 81 mg Budesonide/Formoterol Fumarate (Symbicort 80/4.5mcg -) 2 puff IH BID [facility] Last Admin: 12/24/17 09:36 Dose: Not Given Cholecalciferol (Vitamin D3 -) 2,000 unit PO DAILY [facility] Last Admin: 12/24/17 09:33 Dose: 2,000 unit Enoxaparin Sodium (Lovenox -) 40 mg SQ DAILY [facility] Last Admin: 12/24/17 09:34 Dose: 40 mg Furosemide (Lasix -) 40 mg PO DAILY [facility] Last Admin: 12/23/17 09:40 Dose: 40 mg Azithromycin 500 mg/ Dextrose 250 mls @ 250 mls/hr IVPB DAILY [facility] Last Admin: 12/24/17 09:35 Dose: 250 mls/hr Ceftriaxone Sodium 1 gm/ (Dextrose) 50 mls @ 100 mls/hr IVPB DAILY [facility] Last Admin: 12/24/17 09:35 Dose: 100 mls/hr Sodium Chloride (Normal Saline -) 1,000 mls @ 50 mls/hr IV ASDIR [facility] Stop: 12/24/17 14:37 Last Admin: 12/23/17 16:46 Dose: 50 mls/hr Lisinopril (Prinivil) 40 mg PO BID [facility] Last Admin: 12/24/17 09:33 Dose: 40 mg Methylprednisolone Sodium Succinate (Solu-Medrol -) 40 mg IVPB Q6H-IV [facility] Last Admin: 12/24/17 09:32 Dose: 40 mg Multivitamins/Minerals (Theragran-M) 1 each PO DAILY [facility] Last Admin: 12/24/17 09:33 Dose: 1 each Nifedipine (Procardia Xl -) 60 mg PO HS [facility] Last Admin: 12/23/17 21:40 Dose: 60 mg Pantoprazole Sodium (Protonix -) 20 mg PO DAILY [facility] Last Admin: 12/24/17 09:33 Dose: 20 mg Propranolol HCl (Inderal La -) 160 mg PO DAILY [facility] Last Admin: 12/24/17 09:34 Dose: 160 mg - Objective Vital Signs: Vital Signs Temperature 97.0 F L 12/24/17 08:33 Pulse Rate 78 12/24/17 08:33 Respiratory Rate 20 12/24/17 08:36 Blood Pressure 113/59 12/24/17 08:33 O2 Sat by Pulse Oximetry (%) 93 L 12/24/17 08:36 Constitutional: Yes: Well Nourished, No Distress, Calm Cardiovascular: Yes: Regular Rate and Rhythm. No: Gallop, Murmur Respiratory: Yes: Regular, Diminished, On Nasal O2, Rales, SOB on Exertion. No : Accessory Muscle Use, Tachypnea, Wheezes Gastrointestinal: Yes: WNL, Normal Bowel Sounds, Soft, Abdomen, Obese. No: Distention, Tenderness Genitourinary: Yes: WNL Extremities: Yes: WNL Edema: Yes Edema: LLE: 1+, RLE: 1+ Neurological: Yes: WNL, Alert, Oriented Psychiatric: Yes: WNL, Alert, Oriented Labs: CBC, BMP 12/24/17 06:30 12/24/17 06:30 INR, PTT INR 1.09 (0.83-1.09) 12/22/17 09:20 Problem List - Problems (1) Sepsis Code(s): A41.9 - SEPSIS, UNSPECIFIED ORGANISM (2) CAP (community acquired pneumonia) Code(s): J18.9 - PNEUMONIA, UNSPECIFIED ORGANISM Qualifiers: Laterality: right Lung location: lower lobe of lung Qualified Code(s): J18.1 - Lobar pneumonia, unspecified organism (3) Acute metabolic encephalopathy Code(s): G93.41 - METABOLIC ENCEPHALOPATHY (4) Acute hypoxemic respiratory failure Code(s): J96.01 - ACUTE RESPIRATORY FAILURE WITH HYPOXIA (5) COPD exacerbation Code(s): J44.1 - CHRONIC OBSTRUCTIVE PULMONARY DISEASE W (ACUTE) EXACERBATION (6) Acute kidney injury Code(s): N17.9 - ACUTE KIDNEY FAILURE, UNSPECIFIED (7) Hypertension Code(s): I10 - ESSENTIAL (PRIMARY) HYPERTENSION Qualifiers: Hypertension type: essential hypertension Qualified Code(s): I10 - Essential (primary) hypertension Assessment/Plan (1) Sepsis Assessment/Plan: improved, secondary to pna febrile, tachycardic, tachypneic, hypoxic,lactic acid 2.3 , louisa , wbc16 during admission lactic acidosis resolved required bipap- now weaned off Code(s): A41.9 - SEPSIS, UNSPECIFIED ORGANISM (2) CAP (community acquired pneumonia) Assessment/Plan: CT- b/l infiltrates wbc 17k, pt on steroids requiring O2 to maintain O2sat>92% ceftriaxone, azithromycin day 3 blood cultures neg/sputum culture pending IS monitor Code(s): J18.9 - PNEUMONIA, UNSPECIFIED ORGANISM Qualifiers: Laterality: right Lung location: lower lobe of lung Qualified Code(s): J18.1 - Lobar pneumonia, unspecified organism (2) Acute metabolic encephalopathy Assessment/Plan: resolved suspect secondary to pna as above head ct neg Code(s): G93.41 - METABOLIC ENCEPHALOPATHY (3) Acute hypoxemic respiratory failure Assessment/Plan: bipap weaned off improving O2 via NC Code(s): J96.01 - ACUTE RESPIRATORY FAILURE WITH HYPOXIA (4) COPD exacerbation Assessment/Plan: acute on chronic requiring O2 via nc nebs/medrol pulm following Code(s): J44.1 - CHRONIC OBSTRUCTIVE PULMONARY DISEASE W (ACUTE) EXACERBATION (5) Acute kidney injury Assessment/Plan: prerenal improving ivf monitor Code(s): N17.9 - ACUTE KIDNEY FAILURE, UNSPECIFIED (6) Hypertension Assessment/Plan: controlled continue lisinopril, propranolol, nifedipine hold lasix monitor Code(s): I10 - ESSENTIAL (PRIMARY) HYPERTENSION Qualifiers: Hypertension type: essential hypertension Qualified Code(s): I10 - Essential (primary) hypertension Dispo: Home with VNS when medically stable, cleared by pulm
--- NOTE | 2017-12-24 11:44 | PN ---
Progress Note, Physician History of Present Illness: pulmonary alert,feeling bettet,less dyspneic. chest ct alex infitrates, small mariaa nodular opacity - Current Medication List Current Medications: Active Medications Albuterol/Ipratropium (Duoneb -) 1 amp NEB Q4H PRN PRN Reason: SHORTNESS OF BREATH Last Admin: 12/24/17 09:04 Dose: 1 amp Aspirin (Ecotrin -) 81 mg PO DAILY [facility] Last Admin: 12/24/17 09:33 Dose: 81 mg Budesonide/Formoterol Fumarate (Symbicort 80/4.5mcg -) 2 puff IH BID [facility] Last Admin: 12/24/17 09:36 Dose: Not Given Cholecalciferol (Vitamin D3 -) 2,000 unit PO DAILY [facility] Last Admin: 12/24/17 09:33 Dose: 2,000 unit Enoxaparin Sodium (Lovenox -) 40 mg SQ DAILY [facility] Last Admin: 12/24/17 09:34 Dose: 40 mg Furosemide (Lasix -) 40 mg PO DAILY [facility] Last Admin: 12/23/17 09:40 Dose: 40 mg Azithromycin 500 mg/ Dextrose 250 mls @ 250 mls/hr IVPB DAILY [facility] Last Admin: 12/24/17 09:35 Dose: 250 mls/hr Ceftriaxone Sodium 1 gm/ (Dextrose) 50 mls @ 100 mls/hr IVPB DAILY [facility] Last Admin: 12/24/17 09:35 Dose: 100 mls/hr Sodium Chloride (Normal Saline -) 1,000 mls @ 50 mls/hr IV ASDIR [facility] Stop: 12/24/17 14:37 Last Admin: 12/23/17 16:46 Dose: 50 mls/hr Lisinopril (Prinivil) 40 mg PO BID [facility] Last Admin: 12/24/17 09:33 Dose: 40 mg Methylprednisolone Sodium Succinate (Solu-Medrol -) 40 mg IVPB Q6H-IV [facility] Last Admin: 12/24/17 09:32 Dose: 40 mg Multivitamins/Minerals (Theragran-M) 1 each PO DAILY [facility] Last Admin: 12/24/17 09:33 Dose: 1 each Nifedipine (Procardia Xl -) 60 mg PO HS [facility] Last Admin: 12/23/17 21:40 Dose: 60 mg Pantoprazole Sodium (Protonix -) 20 mg PO DAILY [facility] Last Admin: 12/24/17 09:33 Dose: 20 mg Propranolol HCl (Inderal La -) 160 mg PO DAILY [facility] Last Admin: 12/24/17 09:34 Dose: 160 mg - Objective Vital Signs: Vital Signs Temperature 97.0 F L 12/24/17 08:33 Pulse Rate 78 12/24/17 08:33 Respiratory Rate 20 12/24/17 08:36 Blood Pressure 113/59 12/24/17 08:33 O2 Sat by Pulse Oximetry (%) 93 L 12/24/17 08:36 Constitutional: Yes: Well Nourished, Calm Eyes: Yes: WNL HENT: Yes: WNL Neck: Yes: WNL Cardiovascular: Yes: Regular Rate and Rhythm, S1, S2 Respiratory: Yes: Rales (BIBASILAR CRACKLES) Gastrointestinal: Yes: Normal Bowel Sounds, Soft Extremities: Yes: WNL Edema: No Labs: CBC, BMP 12/24/17 06:30 12/24/17 06:30 INR, PTT INR 1.09 (0.83-1.09) 12/22/17 09:20 - ....Imaging Cat Scan: Report Reviewed, Image Reviewed Problem List - Problems (1) Acute kidney injury Code(s): N17.9 - ACUTE KIDNEY FAILURE, UNSPECIFIED (2) Acute metabolic encephalopathy Code(s): G93.41 - METABOLIC ENCEPHALOPATHY (3) Altered mental status Code(s): R41.82 - ALTERED MENTAL STATUS, UNSPECIFIED (4) CAP (community acquired pneumonia) Code(s): J18.9 - PNEUMONIA, UNSPECIFIED ORGANISM Qualifiers: Laterality: right Lung location: lower lobe of lung Qualified Code(s): J18.1 - Lobar pneumonia, unspecified organism (5) COPD exacerbation Code(s): J44.1 - CHRONIC OBSTRUCTIVE PULMONARY DISEASE W (ACUTE) EXACERBATION (6) Fever Code(s): R50.9 - FEVER, UNSPECIFIED (7) Hypertension Code(s): I10 - ESSENTIAL (PRIMARY) HYPERTENSION Qualifiers: Hypertension type: essential hypertension Qualified Code(s): I10 - Essential (primary) hypertension (8) SIRS (systemic inflammatory response syndrome) Code(s): R65.10 - SIRS OF NON-INFECTIOUS ORIGIN W/O ACUTE ORGAN DYSFUNCTION (9) Acute hypoxemic respiratory failure Code(s): J96.01 - ACUTE RESPIRATORY FAILURE WITH HYPOXIA Assessment/Plan IMP ACUTE HYPOXEMIC RESPIRATORY FAILURE BILATERAL PNEUMONIA MARIAA NODULAR OPACITY LIKELY INFLAMMATORY COPD SIRS ALTERED MENTAL STATUS PEDRITO PLAN IV ABX SUPPLEMENTAL O2 INHALED BRONCHODILATORS MEDROL IVF MONITOR LYTES/RENAL FUNCTION F/U CHEST CT 6-8 WKS TO ENSURE RESOLUTION OF INFILTRATES,AND MARIAA OPACITY DR DAMON Problem List - Problems (1) Acute kidney injury Code(s): N17.9 - ACUTE KIDNEY FAILURE, UNSPECIFIED (2) Acute metabolic encephalopathy Code(s): G93.41 - METABOLIC ENCEPHALOPATHY (3) Altered mental status Code(s): R41.82 - ALTERED MENTAL STATUS, UNSPECIFIED (4) CAP (community acquired pneumonia) Code(s): J18.9 - PNEUMONIA, UNSPECIFIED ORGANISM (5) COPD exacerbation Code(s): J44.1 - CHRONIC OBSTRUCTIVE PULMONARY DISEASE W (ACUTE) EXACERBATION (6) Fever Code(s): R50.9 - FEVER, UNSPECIFIED (7) Hypertension Code(s): I10 - ESSENTIAL (PRIMARY) HYPERTENSION Qualifiers: Hypertension type: essential hypertension Qualified Code(s): I10 - Essential (primary) hypertension (8) SIRS (systemic inflammatory response syndrome) Code(s): R65.10 - SIRS OF NON-INFECTIOUS ORIGIN W/O ACUTE ORGAN DYSFUNCTION (9) Acute hypoxemic respiratory failure Code(s): J96.01 - ACUTE RESPIRATORY FAILURE WITH HYPOXIA
[2017-12-24 11:58] LABS: ANISOCYTOSIS 1+; MACROCYTOSIS 1+; OVALOCYTE 1+; PLATELET ESTIMATE NORMAL
[2017-12-24] MEDS: NIFEdipine E.R 60 MG TABLET (UD) PO SCH (21:16)
[2017-12-25] MEDS: methylPREDNISolone NA SUCC 40 MG/1 ML VIAL IVPB SCH ×4 (02:16→21:30)
[2017-12-25 07:45] LABS: BASO % 0.5 % (0-2.0); HEMATOCRIT 33.9 % (35.4-49); HEMOGLOBIN 11.6 GM/dL (11.7-16.9); LYMPH % 2.9 % (8-40); MCH 32.8 pg (25.7-33.7); MCHC 34.4 g/dl (32.0-35.9); MEAN CELL VOLUME 95.6 fl (80-96); MONO % 4.3 % (3.8-10.2); NEUT % 92.3 % (42.8-82.8); PLATELET COUNT 332 K/MM3 (134-434); RBC 3.54 M/mm3 (4.00-5.60); RDW 13.3 % (11.9-15.9); WHITE BLOOD COUNT 12.9 K/mm3 (4.0-10.0)
[2017-12-25 08:35] LABS: ALBUMIN 2.4 g/dl (3.4-5.0); ANION GAP 6 (8-16); BLOOD UREA NITROGEN 45 mg/dL (7-18); CALCIUM 8.6 mg/dL (8.5-10.1); CHLORIDE 112 mmol/L (98-107); CO2 27 mmol/L (21-32); GLUCOSE,RANDOM 122 mg/dL (74-106); POTASSIUM 4.8 mmol/L (3.5-5.1); SODIUM 145 mmol/L (136-145)
[2017-12-25 08:38] LABS: ALK PHOS 87 U/L (45-117); BILIRUBIN,TOTAL 0.4 mg/dL (0.2-1.0); CREATININE 1.3 mg/dL (0.7-1.3); SGOT/AST 74 U/L (15-37); SGPT/ALT 177 U/L (12-78); TOT PROT 5.2 g/dl (6.4-8.2)
[2017-12-25] MEDS: LISINOPRIL 20 MG TABLET (FP) PO SCH ×2 (09:40→21:34)
[2017-12-25] MEDS: CHOLECALCIFEROL (VITAMIN D3) 1,000 UNIT TABLET (FP) PO SCH (09:40)
[2017-12-25] MEDS: ASPIRIN COATED 81 MG TABLET.EC PO SCH (09:42)
[2017-12-25] MEDS: MULTIVITAMINS THER W-MINERALS COMBO TABLET (FP) PO SCH (09:42)
[2017-12-25] MEDS: PANTOPRAZOLE 20 MG TABLET (FP) PO SCH (09:42)
[2017-12-25] MEDS: BUDESONIDE/FORMETEROL FUMARATE 80/4.5 mcg INHALER IH SCH ×2 (09:43→21:32)
--- NOTE | 2017-12-25 10:03 | PN ---
Progress Note, Physician Chief Complaint: Pt sitting in bed in no acute distress. reports feeling better. denies any sob. ambulating without difficulty. Otherwise, denies chest pain, sob, n/v/d - Current Medication List Current Medications: Active Medications Albuterol/Ipratropium (Duoneb -) 1 amp NEB Q4H PRN PRN Reason: SHORTNESS OF BREATH Last Admin: 12/24/17 09:04 Dose: 1 amp Aspirin (Ecotrin -) 81 mg PO DAILY [facility] Last Admin: 12/25/17 09:42 Dose: 81 mg Budesonide/Formoterol Fumarate (Symbicort 80/4.5mcg -) 2 puff IH BID [facility] Last Admin: 12/25/17 09:43 Dose: Not Given Cholecalciferol (Vitamin D3 -) 2,000 unit PO DAILY [facility] Last Admin: 12/25/17 09:40 Dose: 2,000 unit Enoxaparin Sodium (Lovenox -) 40 mg SQ DAILY [facility] Last Admin: 12/24/17 09:34 Dose: 40 mg Furosemide (Lasix -) 40 mg PO DAILY [facility] Last Admin: 12/23/17 09:40 Dose: 40 mg Azithromycin 500 mg/ Dextrose 250 mls @ 250 mls/hr IVPB DAILY [facility] Last Admin: 12/24/17 09:35 Dose: 250 mls/hr Ceftriaxone Sodium 1 gm/ (Dextrose) 50 mls @ 100 mls/hr IVPB DAILY [facility] Last Admin: 12/24/17 09:35 Dose: 100 mls/hr Lisinopril (Prinivil) 40 mg PO BID [facility] Last Admin: 12/25/17 09:40 Dose: 40 mg Methylprednisolone Sodium Succinate (Solu-Medrol -) 40 mg IVPB Q6H-IV [facility] Last Admin: 12/25/17 09:43 Dose: 40 mg Multivitamins/Minerals (Theragran-M) 1 each PO DAILY [facility] Last Admin: 12/25/17 09:42 Dose: 1 each Nifedipine (Procardia Xl -) 60 mg PO HS [facility] Last Admin: 12/24/17 21:16 Dose: 60 mg Pantoprazole Sodium (Protonix -) 20 mg PO DAILY [facility] Last Admin: 12/25/17 09:42 Dose: 20 mg Propranolol HCl (Inderal La -) 160 mg PO DAILY [facility] Last Admin: 12/25/17 09:46 Dose: 160 mg - Objective Vital Signs: Vital Signs Temperature 97.5 F L 12/25/17 02:00 Pulse Rate 74 12/25/17 02:00 Respiratory Rate 20 12/25/17 02:00 Blood Pressure 127/69 12/25/17 02:00 O2 Sat by Pulse Oximetry (%) 93 L 12/24/17 21:00 Constitutional: Yes: Well Nourished, No Distress, Calm Cardiovascular: Yes: WNL, Regular Rate and Rhythm. No: Gallop, Murmur Respiratory: Yes: Regular, Diminished, On Nasal O2, Rales (bibasilar). No: Accessory Muscle Use, SOB, Tachypnea, Wheezes Gastrointestinal: Yes: WNL, Normal Bowel Sounds, Soft. No: Distention, Tenderness Genitourinary: Yes: WNL Edema: Yes Edema: LLE: Trace, RLE: Trace Neurological: Yes: WNL, Alert, Oriented Psychiatric: Yes: WNL, Alert, Oriented Labs: CBC, BMP 12/25/17 06:22 12/25/17 06:22 INR, PTT INR 1.09 (0.83-1.09) 12/22/17 09:20 Problem List - Problems (1) Sepsis Code(s): A41.9 - SEPSIS, UNSPECIFIED ORGANISM (2) CAP (community acquired pneumonia) Code(s): J18.9 - PNEUMONIA, UNSPECIFIED ORGANISM Qualifiers: Laterality: right Lung location: lower lobe of lung Qualified Code(s): J18.1 - Lobar pneumonia, unspecified organism (3) Acute metabolic encephalopathy Code(s): G93.41 - METABOLIC ENCEPHALOPATHY (4) Acute hypoxemic respiratory failure Code(s): J96.01 - ACUTE RESPIRATORY FAILURE WITH HYPOXIA (5) COPD exacerbation Code(s): J44.1 - CHRONIC OBSTRUCTIVE PULMONARY DISEASE W (ACUTE) EXACERBATION (6) Acute kidney injury Code(s): N17.9 - ACUTE KIDNEY FAILURE, UNSPECIFIED (7) Hypertension Code(s): I10 - ESSENTIAL (PRIMARY) HYPERTENSION Qualifiers: Hypertension type: essential hypertension Qualified Code(s): I10 - Essential (primary) hypertension (8) Transaminitis Code(s): R74.0 - NONSPEC ELEV OF LEVELS OF TRANSAMNS & LACTIC ACID DEHYDRGNSE Assessment/Plan (1) Sepsis Assessment/Plan: improved Code(s): A41.9 - SEPSIS, UNSPECIFIED ORGANISM (2) CAP (community acquired pneumonia) Assessment/Plan: b/l infiltrates improving, wbc trending down desatting to high 80s on RA, requiring O2 to maintain O2sat>92% ceftriaxone, azithromycin day 4, mild transaminitis noted, will monitor for now blood cultures neg/sputum culture neg IS monitor Code(s): J18.9 - PNEUMONIA, UNSPECIFIED ORGANISM Qualifiers: Laterality: right Lung location: lower lobe of lung Qualified Code(s): J18.1 - Lobar pneumonia, unspecified organism (2) Acute metabolic encephalopathy Assessment/Plan: resolved Code(s): G93.41 - METABOLIC ENCEPHALOPATHY (3) Acute hypoxemic respiratory failure Assessment/Plan: improving O2 via NC Code(s): J96.01 - ACUTE RESPIRATORY FAILURE WITH HYPOXIA (4) COPD exacerbation Assessment/Plan: acute on chronic requiring O2 via nc nebs/medrol taper pulm following Code(s): J44.1 - CHRONIC OBSTRUCTIVE PULMONARY DISEASE W (ACUTE) EXACERBATION (5) Acute kidney injury Assessment/Plan: improved s/p ivf Code(s): N17.9 - ACUTE KIDNEY FAILURE, UNSPECIFIED (6) Transaminitis Assessment/Plan: mild elevation in lfts suspect drug induced/antibx monitor for now Code(s): R74.0 - NONSPEC ELEV OF LEVELS OF TRANSAMNS & LACTIC ACID DEHYDRGNSE (7) Hypertension Assessment/Plan: controlled continue lisinopril, propranolol, nifedipine continue lasix monitor Code(s): I10 - ESSENTIAL (PRIMARY) HYPERTENSION Qualifiers: Hypertension type: essential hypertension Qualified Code(s): I10 - Essential (primary) hypertension Dispo: Home with [facility] when medically stable, and cleared by pulm. pt may need home o2 temporarily.
--- NOTE | 2017-12-25 11:14 | PN ---
Progress Note, Physician History of Present Illness: pulmonary alert,feeling better,less dyspneic - Current Medication List Current Medications: Active Medications Albuterol/Ipratropium (Duoneb -) 1 amp NEB Q4H PRN PRN Reason: SHORTNESS OF BREATH Last Admin: 12/24/17 09:04 Dose: 1 amp Aspirin (Ecotrin -) 81 mg PO DAILY [facility] Last Admin: 12/25/17 09:42 Dose: 81 mg Budesonide/Formoterol Fumarate (Symbicort 80/4.5mcg -) 2 puff IH BID [facility] Last Admin: 12/25/17 09:43 Dose: Not Given Cholecalciferol (Vitamin D3 -) 2,000 unit PO DAILY [facility] Last Admin: 12/25/17 09:40 Dose: 2,000 unit Enoxaparin Sodium (Lovenox -) 40 mg SQ DAILY [facility] Last Admin: 12/24/17 09:34 Dose: 40 mg Furosemide (Lasix -) 40 mg PO DAILY [facility] Last Admin: 12/23/17 09:40 Dose: 40 mg Azithromycin 500 mg/ Dextrose 250 mls @ 250 mls/hr IVPB DAILY [facility] Last Admin: 12/24/17 09:35 Dose: 250 mls/hr Ceftriaxone Sodium 1 gm/ (Dextrose) 50 mls @ 100 mls/hr IVPB DAILY [facility] Last Admin: 12/24/17 09:35 Dose: 100 mls/hr Lactobacillus Acidophilus (Bacid -) 1 tab PO DAILY [facility] Lisinopril (Prinivil) 40 mg PO BID [facility] Last Admin: 12/25/17 09:40 Dose: 40 mg Methylprednisolone Sodium Succinate (Solu-Medrol -) 40 mg IVPB Q6H-IV [facility] Last Admin: 12/25/17 09:43 Dose: 40 mg Multivitamins/Minerals (Theragran-M) 1 each PO DAILY [facility] Last Admin: 12/25/17 09:42 Dose: 1 each Nifedipine (Procardia Xl -) 60 mg PO HS [facility] Last Admin: 12/24/17 21:16 Dose: 60 mg Pantoprazole Sodium (Protonix -) 20 mg PO DAILY [facility] Last Admin: 12/25/17 09:42 Dose: 20 mg Propranolol HCl (Inderal La -) 160 mg PO DAILY [facility] Last Admin: 12/25/17 09:46 Dose: 160 mg - Objective Vital Signs: Vital Signs Temperature 97.5 F L 12/25/17 02:00 Pulse Rate 74 12/25/17 02:00 Respiratory Rate 20 12/25/17 02:00 Blood Pressure 127/69 12/25/17 02:00 O2 Sat by Pulse Oximetry (%) 93 L 12/24/17 21:00 Constitutional: Yes: Well Nourished, Calm Eyes: Yes: WNL HENT: Yes: WNL Neck: Yes: WNL Cardiovascular: Yes: Regular Rate and Rhythm, S1, S2 Respiratory: Yes: Rales (scattered alex crackles) Gastrointestinal: Yes: Normal Bowel Sounds, Soft Edema: No Labs: CBC, BMP 12/25/17 06:22 12/25/17 06:22 INR, PTT INR 1.09 (0.83-1.09) 12/22/17 09:20 Problem List - Problems (1) Acute kidney injury Code(s): N17.9 - ACUTE KIDNEY FAILURE, UNSPECIFIED (2) Acute metabolic encephalopathy Code(s): G93.41 - METABOLIC ENCEPHALOPATHY (3) Altered mental status Code(s): R41.82 - ALTERED MENTAL STATUS, UNSPECIFIED (4) CAP (community acquired pneumonia) Code(s): J18.9 - PNEUMONIA, UNSPECIFIED ORGANISM Qualifiers: Laterality: right Lung location: lower lobe of lung Qualified Code(s): J18.1 - Lobar pneumonia, unspecified organism (5) COPD exacerbation Code(s): J44.1 - CHRONIC OBSTRUCTIVE PULMONARY DISEASE W (ACUTE) EXACERBATION (6) Fever Code(s): R50.9 - FEVER, UNSPECIFIED (7) Hypertension Code(s): I10 - ESSENTIAL (PRIMARY) HYPERTENSION Qualifiers: Hypertension type: essential hypertension Qualified Code(s): I10 - Essential (primary) hypertension (8) SIRS (systemic inflammatory response syndrome) Code(s): R65.10 - SIRS OF NON-INFECTIOUS ORIGIN W/O ACUTE ORGAN DYSFUNCTION (9) Acute hypoxemic respiratory failure Code(s): J96.01 - ACUTE RESPIRATORY FAILURE WITH HYPOXIA Assessment/Plan IMP ACUTE HYPOXEMIC RESPIRATORY FAILURE IMPROB=VING BILATERAL PNEUMONIA RA NODULAR OPACITY LIKELY INFLAMMATORY COPD ALTERED MENTAL STATUS IMPROVED PEDRITO PLAN CONTINUE IV ABX SUPPLEMENTAL O2 INHALED BRONCHODILATORS MEDROL TAPER IVF MONITOR LYTES/RENAL FUNCTION F/U CHEST CT 6-8 WKS TO ENSURE RESOLUTION OF INFILTRATES,AND RA OPACITY DR DAMON Problem List - Problems (1) Acute kidney injury Code(s): N17.9 - ACUTE KIDNEY FAILURE, UNSPECIFIED (2) Acute metabolic encephalopathy Code(s): G93.41 - METABOLIC ENCEPHALOPATHY (3) Altered mental status Code(s): R41.82 - ALTERED MENTAL STATUS, UNSPECIFIED (4) CAP (community acquired pneumonia) Code(s): J18.9 - PNEUMONIA, UNSPECIFIED ORGANISM (5) COPD exacerbation Code(s): J44.1 - CHRONIC OBSTRUCTIVE PULMONARY DISEASE W (ACUTE) EXACERBATION (6) Fever Code(s): R50.9 - FEVER, UNSPECIFIED (7) Hypertension Code(s): I10 - ESSENTIAL (PRIMARY) HYPERTENSION Qualifiers: Hypertension type: essential hypertension Qualified Code(s): I10 - Essential (primary) hypertension (8) SIRS (systemic inflammatory response syndrome) Code(s): R65.10 - SIRS OF NON-INFECTIOUS ORIGIN W/O ACUTE ORGAN DYSFUNCTION (9) Acute hypoxemic respiratory failure Code(s): J96.01 - ACUTE RESPIRATORY FAILURE WITH HYPOXIA
[2017-12-25] MEDS ORDERED: PT OWN MED DRAWER 7, Y5N ONE (11:43)
[2017-12-25 11:54] LABS: PLATELET ESTIMATE ADEQUATE
[2017-12-25] MEDS: ENOXAPARIN NA (PORCINE) 40 MG/0.4 ML DISP.SYRIN SQ SCH (11:54)
[2017-12-25] MEDS: CEFTRIAXONE 1 GM in DEXTROSE 5%-WATER - 50 ML IVPB SCH (11:55)
[2017-12-25] MEDS: AZITHROMYCIN IVPB 500 MG in DEXTROSE 5%-WATER - 250 ML IVPB SCH (11:55)
[2017-12-25] MEDS: LACTOBACILLUS ACIDOPHILUS 1 TABLET PO SCH (13:16)
[2017-12-25] MEDS: NIFEdipine E.R 60 MG TABLET (UD) PO SCH (21:34)
[2017-12-26] MEDS: methylPREDNISolone NA SUCC 40 MG/1 ML VIAL IVPB SCH ×3 (03:45→21:29)
[2017-12-26 06:39] LABS: EOS % 2.1 % (0-4.5); HEMATOCRIT 34.4 % (35.4-49); HEMOGLOBIN 11.8 GM/dL (11.7-16.9); MCH 32.9 pg (25.7-33.7); MCHC 34.3 g/dl (32.0-35.9); MEAN CELL VOLUME 95.9 fl (80-96); MEAN PLT VOLUME 7.9 fl (7.5-11.1); MONO % 1.9 % (3.8-10.2); PLATELET COUNT 316 K/MM3 (134-434); RBC 3.59 M/mm3 (4.00-5.60); RDW 13.3 % (11.9-15.9); WHITE BLOOD COUNT 11.7 K/mm3 (4.0-10.0)
[2017-12-26 07:22] LABS: CHLORIDE 112 mmol/L (98-107); POTASSIUM 4.9 mmol/L (3.5-5.1); SODIUM 146 mmol/L (136-145)
[2017-12-26 07:32] LABS: ALBUMIN 2.2 g/dl (3.4-5.0); ALK PHOS 74 U/L (45-117); ANION GAP 8 (8-16); BILIRUBIN,TOTAL 0.3 mg/dL (0.2-1.0); BLOOD UREA NITROGEN 45 mg/dL (7-18); CALCIUM 8.2 mg/dL (8.5-10.1); CO2 26 mmol/L (21-32); CREATININE 1.2 mg/dL (0.7-1.3); GLUCOSE,RANDOM 126 mg/dL (74-106); SGOT/AST 44 U/L (15-37); SGPT/ALT 142 U/L (12-78); TOT PROT 4.9 g/dl (6.4-8.2)
[2017-12-26] MEDS ORDERED: cefTRIAXone SODIUM 1 GM VIAL ONE (09:20)
[2017-12-26] MEDS ORDERED: DEXTROSE 5%-WATER - 50 ML IVPB ONE (09:21)
[2017-12-26] MEDS: LACTOBACILLUS ACIDOPHILUS 1 TABLET PO SCH (09:39)
[2017-12-26] MEDS: CHOLECALCIFEROL (VITAMIN D3) 1,000 UNIT TABLET (FP) PO SCH (09:39)
[2017-12-26] MEDS: MULTIVITAMINS THER W-MINERALS COMBO TABLET (FP) PO SCH (09:40)
[2017-12-26] MEDS: FUROSEMIDE 40 MG TABLET (FP) PO SCH (09:40)
[2017-12-26] MEDS: PANTOPRAZOLE 20 MG TABLET (FP) PO SCH (09:40)
[2017-12-26] MEDS: LISINOPRIL 20 MG TABLET (FP) PO SCH ×2 (09:41→21:28)
[2017-12-26] MEDS: ASPIRIN COATED 81 MG TABLET.EC PO SCH (09:41)
[2017-12-26] MEDS: ENOXAPARIN NA (PORCINE) 40 MG/0.4 ML DISP.SYRIN SQ SCH (09:43)
[2017-12-26] MEDS: BUDESONIDE/FORMETEROL FUMARATE 80/4.5 mcg INHALER IH SCH ×2 (09:44→21:29)
[2017-12-26] MEDS: CEFTRIAXONE 1 GM in DEXTROSE 5%-WATER - 50 ML IVPB SCH (09:44)
--- NOTE | 2017-12-26 09:44 | PN ---
Progress Note, Physician Chief Complaint: Pt sitting in bed in no acute distress. reports feeling better. denies any sob. ambulating without difficulty. Otherwise, denies chest pain, sob, n/v/d - Current Medication List Current Medications: Active Medications Albuterol/Ipratropium (Duoneb -) 1 amp NEB Q4H PRN PRN Reason: SHORTNESS OF BREATH Last Admin: 12/24/17 09:04 Dose: 1 amp Aspirin (Ecotrin -) 81 mg PO DAILY [facility] Last Admin: 12/25/17 09:42 Dose: 81 mg Budesonide/Formoterol Fumarate (Symbicort 80/4.5mcg -) 2 puff IH BID [facility] Last Admin: 12/25/17 21:32 Dose: Not Given Cholecalciferol (Vitamin D3 -) 2,000 unit PO DAILY [facility] Last Admin: 12/25/17 09:40 Dose: 2,000 unit Enoxaparin Sodium (Lovenox -) 40 mg SQ DAILY [facility] Last Admin: 12/25/17 11:54 Dose: 40 mg Furosemide (Lasix -) 40 mg PO DAILY [facility] Last Admin: 12/23/17 09:40 Dose: 40 mg Azithromycin 500 mg/ Dextrose 250 mls @ 250 mls/hr IVPB DAILY [facility] Last Admin: 12/25/17 11:55 Dose: 250 mls/hr Ceftriaxone Sodium 1 gm/ (Dextrose) 50 mls @ 100 mls/hr IVPB DAILY [facility] Last Admin: 12/25/17 11:55 Dose: 100 mls/hr Lactobacillus Acidophilus (Bacid -) 1 tab PO DAILY [facility] Last Admin: 12/25/17 13:16 Dose: 1 tab Lisinopril (Prinivil) 40 mg PO BID [facility] Last Admin: 12/25/17 21:34 Dose: 40 mg Methylprednisolone Sodium Succinate (Solu-Medrol -) 40 mg IVPB Q6H-IV [facility] Last Admin: 12/26/17 03:45 Dose: 40 mg Multivitamins/Minerals (Theragran-M) 1 each PO DAILY [facility] Last Admin: 12/25/17 09:42 Dose: 1 each Nifedipine (Procardia Xl -) 60 mg PO HS [facility] Last Admin: 12/25/17 21:34 Dose: 60 mg Pantoprazole Sodium (Protonix -) 20 mg PO DAILY [facility] Last Admin: 12/25/17 09:42 Dose: 20 mg Propranolol HCl (Inderal La -) 160 mg PO DAILY [facility] Last Admin: 12/25/17 09:46 Dose: 160 mg - Objective Vital Signs: Vital Signs Temperature 98.2 F 12/26/17 08:41 Pulse Rate 70 12/26/17 08:41 Respiratory Rate 20 12/26/17 08:41 Blood Pressure 143/81 12/26/17 08:41 O2 Sat by Pulse Oximetry (%) 94 L 12/26/17 08:41 Constitutional: Yes: Well Nourished, No Distress, Calm Cardiovascular: Yes: WNL, Regular Rate and Rhythm. No: Gallop, Murmur Respiratory: Yes: Regular, CTA Bilaterally, Diminished, On Nasal O2, Rales ( bibasilar). No: SOB Gastrointestinal: Yes: WNL, Normal Bowel Sounds, Soft, Abdomen, Obese. No: Distention, Tenderness Genitourinary: Yes: WNL Edema: No Neurological: Yes: WNL, Alert, Oriented Psychiatric: Yes: WNL, Alert, Oriented Labs: CBC, BMP 12/26/17 05:00 12/26/17 05:00 INR, PTT INR 1.09 (0.83-1.09) 12/22/17 09:20 Problem List - Problems (1) Sepsis Code(s): A41.9 - SEPSIS, UNSPECIFIED ORGANISM (2) CAP (community acquired pneumonia) Code(s): J18.9 - PNEUMONIA, UNSPECIFIED ORGANISM Qualifiers: Laterality: right Lung location: lower lobe of lung Qualified Code(s): J18.1 - Lobar pneumonia, unspecified organism (3) Acute metabolic encephalopathy Code(s): G93.41 - METABOLIC ENCEPHALOPATHY (4) Acute hypoxemic respiratory failure Code(s): J96.01 - ACUTE RESPIRATORY FAILURE WITH HYPOXIA (5) COPD exacerbation Code(s): J44.1 - CHRONIC OBSTRUCTIVE PULMONARY DISEASE W (ACUTE) EXACERBATION (6) Acute kidney injury Code(s): N17.9 - ACUTE KIDNEY FAILURE, UNSPECIFIED (7) Hypertension Code(s): I10 - ESSENTIAL (PRIMARY) HYPERTENSION Qualifiers: Hypertension type: essential hypertension Qualified Code(s): I10 - Essential (primary) hypertension (8) Transaminitis Code(s): R74.0 - NONSPEC ELEV OF LEVELS OF TRANSAMNS & LACTIC ACID DEHYDRGNSE Assessment/Plan (1) Sepsis Assessment/Plan: improved Code(s): A41.9 - SEPSIS, UNSPECIFIED ORGANISM (2) CAP (community acquired pneumonia) Assessment/Plan: b/l infiltrates improving, wbc trending down desatting to high 80s on RA, requiring O2 to maintain O2sat>92% ceftriaxone, azithromycin day 5, mild transaminitis noted,improving blood cultures neg/sputum culture neg IS monitor Code(s): J18.9 - PNEUMONIA, UNSPECIFIED ORGANISM Qualifiers: Laterality: right Lung location: lower lobe of lung Qualified Code(s): J18.1 - Lobar pneumonia, unspecified organism (2) Acute metabolic encephalopathy Assessment/Plan: resolved Code(s): G93.41 - METABOLIC ENCEPHALOPATHY (3) Acute hypoxemic respiratory failure Assessment/Plan: improving O2 via [place] Code(s): J96.01 - ACUTE RESPIRATORY FAILURE WITH HYPOXIA (4) COPD exacerbation Assessment/Plan: acute on chronic requiring O2 via nc nebs/medrol taper pulm following Code(s): J44.1 - CHRONIC OBSTRUCTIVE PULMONARY DISEASE W (ACUTE) EXACERBATION (5) Acute kidney injury Assessment/Plan: resolved s/p ivf Code(s): N17.9 - ACUTE KIDNEY FAILURE, UNSPECIFIED (6) Transaminitis Assessment/Plan: improving suspect drug induced/antibx monitor for now Code(s): R74.0 - NONSPEC ELEV OF LEVELS OF TRANSAMNS & LACTIC ACID DEHYDRGNSE (7) Hypertension Assessment/Plan: controlled continue lisinopril, propranolol, nifedipine continue lasix monitor Code(s): I10 - ESSENTIAL (PRIMARY) HYPERTENSION Qualifiers: Hypertension type: essential hypertension Qualified Code(s): I10 - Essential (primary) hypertension Dispo: Home with [facility] when cleared by pulm. pt may need home o2 temporarily.
[2017-12-26] MEDS: AZITHROMYCIN IVPB 500 MG in DEXTROSE 5%-WATER - 250 ML IVPB SCH (09:45)
[2017-12-26 11:18] LABS: ANISOCYTOSIS 0; MACROCYTOSIS 0; PLATELET ESTIMATE NORMAL
[2017-12-26] MEDS ORDERED: PT OWN MED DRAWER 7, Y5N ONE (12:29)
[2017-12-26] MEDS: DOCUSATE SODIUM 100 MG CAPSULE (FP) PO SCH ×3 (12:36→21:27)
[2017-12-26] MEDS: POLYETHYLENE GLYCOL 3350 119 GM BTL PO SCH ×3 (12:36→21:27)
--- NOTE | 2017-12-26 13:32 | PN ---
Progress Note (short form) - Note Progress Note: PULMONARY States breathing continues to improve. Less cough but still with dark yellow/ brown sputum. No fevers or chills. Vital Signs Period Temp Pulse Resp BP Sys/Delgado Pulse Ox Last 24 Hr 97.6 F-98.2 F 68-77 18-20 126-158/68-83 94-95 Gen: mildly tachypneic with speaking Heart: RRR Lung: decreased breath sounds at the bases, no wheezes Abd: soft, nontender Ext: no edema CBC, BMP 12/26/17 05:00 12/26/17 05:00 Active Medications Albuterol/Ipratropium (Duoneb -) 1 amp NEB Q4H PRN PRN Reason: SHORTNESS OF BREATH Last Admin: 12/24/17 09:04 Dose: 1 amp Aspirin (Ecotrin -) 81 mg PO DAILY [facility] Last Admin: 12/26/17 09:41 Dose: 81 mg Budesonide/Formoterol Fumarate (Symbicort 80/4.5mcg -) 2 puff IH BID [facility] Last Admin: 12/26/17 09:44 Dose: Not Given Cholecalciferol (Vitamin D3 -) 2,000 unit PO DAILY [facility] Last Admin: 12/26/17 09:39 Dose: 2,000 unit Docusate Sodium (Colace -) 100 mg PO TID [facility] Last Admin: 12/26/17 12:36 Dose: 100 mg Enoxaparin Sodium (Lovenox -) 40 mg SQ DAILY [facility] Last Admin: 12/26/17 09:43 Dose: 40 mg Furosemide (Lasix -) 40 mg PO DAILY [facility] Last Admin: 12/26/17 09:40 Dose: 40 mg Azithromycin 500 mg/ Dextrose 250 mls @ 250 mls/hr IVPB DAILY [facility] Last Admin: 12/26/17 09:45 Dose: 250 mls/hr Ceftriaxone Sodium 1 gm/ (Dextrose) 50 mls @ 100 mls/hr IVPB DAILY [facility] Last Admin: 12/26/17 09:44 Dose: 100 mls/hr Lactobacillus Acidophilus (Bacid -) 1 tab PO DAILY [facility] Last Admin: 12/26/17 09:39 Dose: 1 tab Lisinopril (Prinivil) 40 mg PO BID [facility] Last Admin: 12/26/17 09:41 Dose: 40 mg Methylprednisolone Sodium Succinate (Solu-Medrol -) 40 mg IVPB Q6H-IV [facility] Last Admin: 12/26/17 09:38 Dose: 40 mg Multivitamins/Minerals (Theragran-M) 1 each PO DAILY [facility] Last Admin: 12/26/17 09:40 Dose: 1 each Nifedipine (Procardia Xl -) 60 mg PO HS [facility] Last Admin: 12/25/17 21:34 Dose: 60 mg Pantoprazole Sodium (Protonix -) 20 mg PO DAILY [facility] Last Admin: 12/26/17 09:40 Dose: 20 mg Polyethylene Glycol (Miralax (For Daily Use) -) 17 gm PO BID [facility] Last Admin: 12/26/17 12:40 Dose: Not Given Propranolol HCl (Inderal La -) 160 mg PO DAILY [facility] Last Admin: 12/26/17 09:43 Dose: 160 mg Senna (Senna -) 2 tab PO HS [facility] A/P Pneumonia Sepsis COPD Acute Kidney Injury HTN - continue antibiotics - can decrease medrol to q12h, if continues to improve can change to PO prednisone 40mg daily in AM and taper as outpt - inhaled bronchodilators - O2 to keep Spo2 >90%, check ambulatory SpO2 on room air to assess for home O2 when ready for discharge - outpt of chest imaging to ensure resolution of infiltrate - DVT prophylaxis
[2017-12-26] MEDS: NIFEdipine E.R 60 MG TABLET (UD) PO SCH (21:28)
[2017-12-26] MEDS ORDERED: SENNOSIDES 8.6MG TABLET (FP) PO SCH (22:00)
[2017-12-27] MEDS: DOCUSATE SODIUM 100 MG CAPSULE (FP) PO SCH (05:37)
[2017-12-27 06:32] LABS: BASO % 0.2 % (0-2.0); EOS % 1.7 % (0-4.5); HEMATOCRIT 35.7 % (35.4-49); HEMOGLOBIN 12.1 GM/dL (11.7-16.9); LYMPH % 3.2 % (8-40); MCH 32.4 pg (25.7-33.7); MEAN CELL VOLUME 95.4 fl (80-96); MEAN PLT VOLUME 7.5 fl (7.5-11.1); MONO % 4.1 % (3.8-10.2); NEUT % 90.8 % (42.8-82.8); PLATELET COUNT 402 K/MM3 (134-434); RBC 3.74 M/mm3 (4.00-5.60); RDW 13.4 % (11.9-15.9); WHITE BLOOD COUNT 14.2 K/mm3 (4.0-10.0)
[2017-12-27 06:57] LABS: ALBUMIN 2.4 g/dl (3.4-5.0); ALK PHOS 74 U/L (45-117); ANION GAP 8 (8-16); BILIRUBIN,TOTAL 0.4 mg/dL (0.2-1.0); BLOOD UREA NITROGEN 47 mg/dL (7-18); CALCIUM 8.2 mg/dL (8.5-10.1); CHLORIDE 111 mmol/L (98-107); CO2 26 mmol/L (21-32); CREATININE 1.3 mg/dL (0.7-1.3); GLUCOSE,RANDOM 115 mg/dL (74-106); POTASSIUM 4.5 mmol/L (3.5-5.1); SGOT/AST 36 U/L (15-37); SGPT/ALT 128 U/L (12-78); SODIUM 145 mmol/L (136-145); TOT PROT 5.1 g/dl (6.4-8.2)
[2017-12-27 08:51] VITALS: BP 132/88; PULSE 60; TEMP 98.6
[2017-12-27] MEDS ORDERED: PT OWN MED DRAWER 7, Y5N ONE (09:29)
[2017-12-27 10:01] LABS: ANISOCYTOSIS 0; MACROCYTOSIS 0; PLATELET ESTIMATE NORMAL
[2017-12-27] MEDS: PANTOPRAZOLE 20 MG TABLET (FP) PO SCH (10:01)
[2017-12-27] MEDS: ASPIRIN COATED 81 MG TABLET.EC PO SCH (10:02)
[2017-12-27] MEDS: MULTIVITAMINS THER W-MINERALS COMBO TABLET (FP) PO SCH (10:02)
[2017-12-27] MEDS: CHOLECALCIFEROL (VITAMIN D3) 1,000 UNIT TABLET (FP) PO SCH (10:02)
[2017-12-27] MEDS: AZITHROMYCIN IVPB 500 MG in DEXTROSE 5%-WATER - 250 ML IVPB SCH (10:02)
[2017-12-27] MEDS: LISINOPRIL 20 MG TABLET (FP) PO SCH (10:02)
[2017-12-27] MEDS: FUROSEMIDE 40 MG TABLET (FP) PO SCH (10:02)
[2017-12-27] MEDS: LACTOBACILLUS ACIDOPHILUS 1 TABLET PO SCH (10:02)
[2017-12-27] MEDS: ENOXAPARIN NA (PORCINE) 40 MG/0.4 ML DISP.SYRIN SQ SCH (10:03)
[2017-12-27] MEDS: CEFTRIAXONE 1 GM in DEXTROSE 5%-WATER - 50 ML IVPB SCH (10:04)
[2017-12-27] MEDS: BUDESONIDE/FORMETEROL FUMARATE 80/4.5 mcg INHALER IH SCH (10:04)
[2017-12-27] MEDS: methylPREDNISolone NA SUCC 40 MG/1 ML VIAL IVPB SCH (10:04)
--- NOTE | 2017-12-27 10:11 | DS ---
Physical Examination Vital Signs: Vital Signs Temperature 98.6 F 12/27/17 08:42 Pulse Rate 60 12/27/17 08:42 Respiratory Rate 20 12/27/17 08:42 Blood Pressure 132/88 12/27/17 08:42 O2 Sat by Pulse Oximetry (%) 95 12/27/17 08:42 Constitutional: Yes: Well Nourished, No Distress, Calm Cardiovascular: Yes: WNL, Regular Rate and Rhythm. No: Murmur Respiratory: Yes: Regular, CTA Bilaterally, On Nasal O2, Rales (bibasilar). No : Accessory Muscle Use, SOB, Tachypnea, Wheezes Gastrointestinal: Yes: WNL, Normal Bowel Sounds, Soft. No: Distention, Tenderness Renal/: Yes: WNL Edema: No Neurological: Yes: WNL, Alert, Oriented Psychiatric: Yes: WNL, Alert, Oriented Labs: CBC, BMP 12/27/17 05:30 12/27/17 05:30 Discharge Summary Reason For Visit: ACUTE EXACERBATION OF CHRONIC COPD Current Active Problems Acute hypoxemic respiratory failure (Acute) CAP (community acquired pneumonia) (Acute) COPD exacerbation (Acute) Pneumonia (Acute) COPD (chronic obstructive pulmonary disease) (Chronic) Hypertension (Chronic) Hospital Course: is a 77 year old male who was admitted for b/l CAP, louisa, acute copd exacerbation. Pt received 5 days of iv ceftriaxone and azithromycin, has been afebrile, transitioned to po augmentin today for 5 more days to complete 10 day course. Mild transaminitis noted which improved, abd us without acute findings. wbc improved, inconsistent due to steroids. louisa resolved s/p ivf Pulm consult appreciated. pt has been doing well. lung exam improved, better air movement today. sob also improved per pt. pt requiring O2 to maintain O2sat >92%. medrol tapered, d/c on prednisone 6 day taper. home O2 set up. repeat ct in 6-8 weeks to assess resolution of infiltrates. f/u as directed. pt and informed of plan, in agreement. 32 minutes spent d/c planning Condition: Stable - Instructions Diet, Activity, Other Instructions: You will need a F/U CHEST CT 6-8 WKS TO ENSURE RESOLUTION OF PNA home O2 , [facility] Augmentin x 5 days - start tomorrow am steroid taper - start tomorrow continue all other medications Referrals: Christiano,Osman, MD [Staff Physician] - 1 Month Gianni Chacon MD [Primary Care Provider] - 1 Week Disposition: [facility]/HOME HEALTH CARE - Home Medications Comprehensive Discharge Medication List: Ambulatory Orders Lisinopril [Prinivil -] 40 mg PO BID 11/10/11 Propranolol HCl [Inderal LA] 160 mg PO DAILY 11/10/11 Salmeterol/Fluticasone [Advair 250Mcg/50Mcg -] 1 each IH BID 11/10/11 Cholecalciferol (Vitamin D3) [Vitamin D3] 2,000 unit PO DAILY 09/15/15 Furosemide [Lasix -] 40 mg PO DAILY 09/15/15 Multivitamin with Minerals [Icaps Plus] 1 each PO DAILY 09/15/15 Nifedipine [Nifedipine ER] 60 mg PO HS 09/15/15 Aspirin [Aspirin EC] 81 mg PO ASDIR #0 09/16/15 Omeprazole 20 mg PO DAILY 03/17/17 [facility] [place] Xtr/Zinc Picolin [[place] [place] Ext 160 mg Cap] 1 each PO DAILY 04/29 Amox-Tr/K Cl [Augmentin - 875Mg Tablet] 1 tab PO BID 5 Days #10 tablet 12/27/17 Lactobacillus Acidophilus [Bacid -] 1 tab PO DAILY #5 tab 12/27/17 Prednisone See Taper PO DAILY #17 tablet 12/27/17
[2017-12-27] MEDS: POLYETHYLENE GLYCOL 3350 119 GM BTL PO SCH (10:12)
--- NOTE | 2017-12-27 13:35 | PN ---
Progress Note (short form) - Note Progress Note: PULMONARY DRESSED,READY TO GO HOME AWAITING PORTABLE O2 HAS F/U FOR MID SEPT IN OUR OFFICE WILL REPEAT CT CHEST AT THAT TIME VSS/AFEBRILE ANICTERIC DIMINISHED B/L BREATH SOUNDS BASES S1S2 BS+ SOFT NO EDEMA LABS/MEDS/NOTES IMAGES REVIEWED Active Medications Albuterol/Ipratropium (Duoneb -) 1 amp NEB Q4H PRN PRN Reason: SHORTNESS OF BREATH Last Admin: 12/24/17 09:04 Dose: 1 amp Aspirin (Ecotrin -) 81 mg PO DAILY [facility] Last Admin: 12/26/17 09:41 Dose: 81 mg Budesonide/Formoterol Fumarate (Symbicort 80/4.5mcg -) 2 puff IH BID [facility] Last Admin: 12/26/17 09:44 Dose: Not Given Cholecalciferol (Vitamin D3 -) 2,000 unit PO DAILY [facility] Last Admin: 12/26/17 09:39 Dose: 2,000 unit Docusate Sodium (Colace -) 100 mg PO TID [facility] Last Admin: 12/26/17 12:36 Dose: 100 mg Enoxaparin Sodium (Lovenox -) 40 mg SQ DAILY [facility] Last Admin: 12/26/17 09:43 Dose: 40 mg Furosemide (Lasix -) 40 mg PO DAILY [facility] Last Admin: 12/26/17 09:40 Dose: 40 mg Azithromycin 500 mg/ Dextrose 250 mls @ 250 mls/hr IVPB DAILY [facility] Last Admin: 12/26/17 09:45 Dose: 250 mls/hr Ceftriaxone Sodium 1 gm/ (Dextrose) 50 mls @ 100 mls/hr IVPB DAILY [facility] Last Admin: 12/26/17 09:44 Dose: 100 mls/hr Lactobacillus Acidophilus (Bacid -) 1 tab PO DAILY [facility] Last Admin: 12/26/17 09:39 Dose: 1 tab Lisinopril (Prinivil) 40 mg PO BID [facility] Last Admin: 12/26/17 09:41 Dose: 40 mg Methylprednisolone Sodium Succinate (Solu-Medrol -) 40 mg IVPB Q6H-IV [facility] Last Admin: 12/26/17 09:38 Dose: 40 mg Multivitamins/Minerals (Theragran-M) 1 each PO DAILY [facility] Last Admin: 12/26/17 09:40 Dose: 1 each Nifedipine (Procardia Xl -) 60 mg PO HS [facility] Last Admin: 12/25/17 21:34 Dose: 60 mg Pantoprazole Sodium (Protonix -) 20 mg PO DAILY [facility] Last Admin: 12/26/17 09:40 Dose: 20 mg Polyethylene Glycol (Miralax (For Daily Use) -) 17 gm PO BID [facility] Last Admin: 12/26/17 12:40 Dose: Not Given Propranolol HCl (Inderal La -) 160 mg PO DAILY [facility] Last Admin: 12/26/17 09:43 Dose: 160 mg Senna (Senna -) 2 tab PO [facility] A/P Pneumonia Sepsis COPD Acute Kidney Injury HTN H/H - antibiotics as an outpatient - medrol discontinued - prednisone taper as outpatient - inhaled bronchodilators - O2 to keep Spo2 >90% - outpt of chest imaging to ensure resolution of infiltrate Sergei GILBERT MD
[2017-12-27] MEDS ORDERED: predniSONE 20 MG TABLET (UD) PO SCH (13:45)
== END 2017-12-27 14:40 | disposition home health service (06) | DRG 871 ==
LOC: JER 08:57 → JERBED 10:27 → J4W 12:53
PROVIDERS: ADMIT Specialist; ATTEND Specialist
PROC: 5A09357 Assistance with Respiratory Ventilation, Less than 24 Consecutive Hours, Continuous Positive Airway Pressure (ICD-10-PCS; principal; 2017-12-22)
PROC: 3E0F76Z Introduction of Nutritional Substance into Respiratory Tract, Via Natural or Artificial Opening (ICD-10-PCS; 2017-12-22)
DX: A41.9 Sepsis, unspecified organism (principal); J18.9 Pneumonia, unspecified organism; J96.01 Acute respiratory failure with hypoxia; G93.41 Metabolic encephalopathy; J44.1 Chronic obstructive pulmonary disease with (acute) exacerbation; N17.9 Acute kidney failure, unspecified; I10 Essential (primary) hypertension; Z87.891 Personal history of nicotine dependence; Z85.828 Personal history of other malignant neoplasm of skin; N40.0 Benign prostatic hyperplasia without lower urinary tract symptoms; Z87.11 Personal history of peptic ulcer disease; K57.30 Diverticulosis of large intestine without perforation or abscess without bleeding; R74.0 Nonspecific elevation of levels of transaminase and lactic acid dehydrogenase [LDH]
CPT/HCPCS: 36415; 36600; 70450-TC; 71045-TC-FY; 71250-TC; 76705-TC; 80048; 80053; 81003; 81015; 82375; 82803; 83050; 83605; 84484; 85025; 85610; 85730; 87040; 87070; 87086; 87205; 87899; 93005; 93010; 94010; 94640; 94660; 94761; 97116-GP; 97161-GP; 99283-25; J0131; J7030; J7620

== ENCOUNTER 2018-11-26 09:34 | Day surgery (SDC) | payer OTHER, BC ==
[2018-11-25 15:27] VITALS: BMI 30.7
[2018-11-26 11:33] VITALS: TEMP 98.2
[2018-11-26 13:41] VITALS: BP 121/62; PULSE 57
--- NOTE | 2018-11-27 09:49 | PATH ---
Surgical Pathology Report Patient Name: COLTON RAINEY [facility]. Rec. #: [id number] /Age/Gender: 1940 (Age: 78) / M Account: [id number] Location: [facility]-ENDOSCOPY Taken: 11/26/2018 Received: 11/26/2018 Reported: 11/27/2018 Physicians: Josesito Ricketts M.D. Specimen(s) Received PROXIMAL TRANSVERSE COLON POLYPS Clinical History Colon polyp surveillance Postoperative diagnosis: Diverticulosis, colon polyps Final Diagnosis PROXIMAL TRANSVERSE COLON, POLYPS, POLYPECTOMY: TUBULAR ADENOMA(S). Electronically Signed Latonia Fink M.D. Gross Description Received in formalin, labeled "polyps proximal transverse colon" are 2 dominguez, irregular portions of soft tissue averaging 0.3 cm. in greatest dimension. The specimens are submitted in toto in one cassette. /11/26/201811/26/2018
== END 2018-11-26 12:10 | disposition home or self-care (01) ==
LOC: JASU-ENDO 09:34
PROVIDERS: ATTEND Internal Medicine Gastroenterology
PROC: 0DBL8ZX Excision of Transverse Colon, Via Natural or Artificial Opening Endoscopic, Diagnostic (ICD-10-PCS; principal; 2018-11-26 10:15)
DX: Z12.11 Encounter for screening for malignant neoplasm of colon (principal); Z86.010 Personal history of colon polyps; Z80.0 Family history of malignant neoplasm of digestive organs; D12.3 Benign neoplasm of transverse colon; K57.30 Diverticulosis of large intestine without perforation or abscess without bleeding; I10 Essential (primary) hypertension; J44.9 Chronic obstructive pulmonary disease, unspecified
CPT/HCPCS: 88305-TC

== ENCOUNTER 2022-03-09 13:25 | Inpatient (IN) | payer OTHER, BC ==
[2022-03-09 14:25] VITALS: BMI 31.4
[2022-03-09 14:41] LABS: HEMATOCRIT 38.6 % (35.4-49); HEMOGLOBIN 13.1 G/dL (11.7-16.9); MCH 32.5 pg (25.7-33.7); MCHC 33.8 g/dl (32.0-35.9); MEAN PLT VOLUME 7.9 fl (7.5-11.1); PLATELET COUNT 237.3 10^3/uL (134-434); RBC 4.02 10^6/uL (4.00-5.60); RDW 13.2 % (11.9-15.9); WHITE BLOOD COUNT 13.3 10^3/uL (4.0-10.8)
[2022-03-09 14:48] LABS: ALBUMIN 3.4 g/dl (3.4-5.0); BILIRUBIN,TOTAL 1.2 mg/dl (0.2-1); CALCIUM 8.6 mg/dl (8.5-10); CREATININE 3.1 mg/dl (0.55-1.3); TOT PROT 5.9 g/dl (6.4-8.2)
[2022-03-09] MEDS ORDERED: CALCIUM GLUCONATE 10% - 1,000 MG/10 ML VIAL IVPUSH ONE (14:55)
[2022-03-09] MEDS ORDERED: SODIUM CHLORIDE 0.9% 500 ML INFUS.BAG IV ONE (14:55)
[2022-03-09] MEDS ORDERED: INSULIN REGULAR HUMAN 100 UNITS/ML *VIAL IVPUSH ONE (14:55)
[2022-03-09] MEDS ORDERED: DEXTROSE 50%-WATER - 25 GM/50 ML VIAL IVPUSH ONE (14:55)
[2022-03-09] MEDS ORDERED: CALCIUM GLUCONATE 10% - 1,000 MG/10 ML VIAL ONE (15:01)
[2022-03-09] MEDS ORDERED: SODIUM ZIRCONIUM CYCLOSILICATE (LOKELMA) 5 GM PACKET ONE (15:02)
[2022-03-09] MEDS ORDERED: DEXTROSE 50%-WATER 25 GM/50 ML DISP.SYRIN ONE (15:02)
[2022-03-09] MEDS ORDERED: INSULIN REGULAR HUMAN 100 UNITS/ML *VIAL ONE (15:03)
[2022-03-09 15:08] LABS: PLATELET ESTIMATE ADEQUATE
[2022-03-09] MEDS: SODIUM ZIRCONIUM CYCLOSILICATE (LOKELMA) 5 GM PACKET PO SCH (15:30)
[2022-03-09] MEDS ORDERED: CEFTRIAXONE 1,000 MG in DEXTROSE 5%-WATER - 50 ML IVPB ONE (16:33)
[2022-03-09] MEDS ORDERED: cefTRIAXone SODIUM 1 GM VIAL ONE (16:34)
[2022-03-09 17:06] LABS: CALCIUM 8.1 mg/dl (8.5-10); CREATININE 2.8 mg/dl (0.55-1.3); TOT PROT 5.2 g/dl (6.4-8.2)
[2022-03-09] MEDS ORDERED: ACETAMINOPHEN 325 MG TABLET (FP) PO PRN (23:03)
[2022-03-09] MEDS ORDERED: SODIUM CHLORIDE 1,000 ML IV SCH (23:15)
[2022-03-09] MEDS ORDERED: ALBUTEROL SO4 2.5/IPRATROPIUM 0.5 INH SOL 3 ML VIAL.NEB. NEB PRN (23:18)
[2022-03-09] MEDS: methylPREDNISolone NA SUCC 40 MG/1 ML VIAL IVPUSH SCH (23:36)
[2022-03-09] MEDS: AZITHROMYCIN IVPB 500 MG/250 ML BAG IVPB SCH (23:36)
[2022-03-09] MEDS: MUPIROCIN 2% TOPICAL OINTMENT FOR DECOLONIZATION NS SCH (23:37)
[2022-03-09 23:40] LABS: ARTERIAL BLD GAS O2 SATURATION 94.8 % (95-98); ARTERIAL BLOOD GAS BASE EXCESS -6.3 mmol/L (-2-2); ARTERIAL BLOOD GAS PO2 72.7 mmHg (80-100); ARTERIAL BLOOD GAS pH 7.389 (7.350-7.450)
[2022-03-10 01:02] LABS: BASO % 0.4 % (0-2.0); EOS % 0.5 % (0-4.5); HEMATOCRIT 35.8 % (35.4-49); HEMOGLOBIN 12.2 GM/dL (11.7-16.9); LYMPH % 9.3 % (8-40); MCH 32.9 pg (25.7-33.7); MCHC 34.1 g/dl (32.0-35.9); MEAN CELL VOLUME 96.3 fl (80-96); MEAN PLT VOLUME 8.5 fl (7.5-11.1); MONO % 6.3 % (3.8-10.2); NEUT % 83.5 % (42.8-82.8); PLATELET COUNT 240 10^3/uL (134-434); RBC 3.72 M/mm3 (4.00-5.60); RDW 12.6 % (11.9-15.9); WHITE BLOOD COUNT 11.4 K/mm3 (4.0-10.0)
[2022-03-10 01:09] LABS: INR 1.04 (0.83-1.09)
[2022-03-10] MEDS: methylPREDNISolone NA SUCC 40 MG/1 ML VIAL IVPUSH SCH ×3 (01:12→17:15)
[2022-03-10 01:23] LABS: CALCIUM 8.2 mg/dL (8.5-10.1)
[2022-03-10 01:24] LABS: ALBUMIN 3.2 g/dl (3.4-5.0); BLOOD UREA NITROGEN 52.6 mg/dL (7-18); MAGNESIUM 2.5 mg/dL (1.8-2.4)
[2022-03-10 01:27] LABS: CREATININE 2.3 mg/dL (0.55-1.3); PHOSPHOROUS 3.6 mg/dL (2.5-4.9)
[2022-03-10 01:29] LABS: BILIRUBIN,TOTAL 0.6 mg/dL (0.2-1); TOT PROT 5.8 g/dl (6.4-8.2)
[2022-03-10 01:31] LABS: N-TERMINAL BNP 6628.9 pg/ml (5-450)
[2022-03-10] MEDS: HEPARIN NA (PORCINE) 5,000 UNITS/ML 1ML VIAL SQ SCH ×3 (07:02→21:57)
[2022-03-10] MEDS: PANTOPRAZOLE 40 MG TABLET PO SCH (10:31)
[2022-03-10] MEDS: CEFTRIAXONE 1 GM in DEXTROSE 5%-WATER - 50 ML IVPB SCH (10:31)
[2022-03-10] MEDS: ASPIRIN 81 MG CHEWABLE TABLETS PO SCH (10:31)
[2022-03-10] MEDS: SODIUM ZIRCONIUM CYCLOSILICATE (LOKELMA) 5 GM PACKET PO SCH (10:32)
[2022-03-10] MEDS: MUPIROCIN 2% TOPICAL OINTMENT FOR DECOLONIZATION NS SCH ×2 (12:00→21:57)
[2022-03-10] MEDS ORDERED: SODIUM CHLORIDE 500 ML IV STA (16:33)
[2022-03-10] MEDS: CHLORHEXIDINE GLUCONATE 4% CLEANSER FOR DECOLONIZATION TP SCH (21:58)
[2022-03-10 22:00] LABS: BLOOD UREA NITROGEN 36.9 mg/dL (7-18); CALCIUM 8.6 mg/dL (8.5-10.1)
[2022-03-10 22:05] LABS: TOT PROT 5.7 g/dl (6.4-8.2)
[2022-03-10 22:34] LABS: BILIRUBIN,TOTAL 0.4 mg/dL (0.2-1)
[2022-03-10] MEDS ORDERED: SODIUM BICARBONATE 8.4% 50 MEQ/50 ML DISP.SYRIN IVPUSH ONE (23:26)
[2022-03-10] MEDS ORDERED: DEXTROSE 50%-WATER 25 GM/50 ML DISP.SYRIN IVPUSH ONE (23:26)
[2022-03-10] MEDS ORDERED: INSULIN REGULAR HUMAN 100 UNITS/ML *VIAL IVPUSH ONE (23:26)
[2022-03-10] MEDS: SODIUM CHLORIDE 1,000 ML IV SCH (23:30)
[2022-03-10] MEDS: AZITHROMYCIN IVPB 500 MG/250 ML BAG IVPB SCH (23:30)
[2022-03-11] MEDS ORDERED: DEXMEDETOMIDINE PREMIX 400 MCG/100 ML BAG IVPB ONE ×2 (01:08→07:03)
[2022-03-11] MEDS ORDERED: HALOPERIDOL LACTATE 5 MG/ML IM ONE ×2 (01:14→01:40)
[2022-03-11] MEDS: DEXMEDETOMIDINE PREMIX 400 MCG/100 ML BAG IVPB SCH (01:15)
[2022-03-11] MEDS ORDERED: LORazepam 2 MG/ML SDV VIAL IVPUSH ONE (01:15)
[2022-03-11] MEDS: methylPREDNISolone NA SUCC 40 MG/1 ML VIAL IVPUSH SCH ×3 (02:08→18:56)
[2022-03-11] MEDS: HEPARIN NA (PORCINE) 5,000 UNITS/ML 1ML VIAL SQ SCH ×3 (06:39→21:49)
[2022-03-11 07:33] LABS: HEMATOCRIT 37.6 % (35.4-49); HEMOGLOBIN 12.4 GM/dL (11.7-16.9); MCH 31.5 pg (25.7-33.7); MCHC 32.9 g/dl (32.0-35.9); MEAN CELL VOLUME 95.9 fl (80-96); MEAN PLT VOLUME 7.8 fl (7.5-11.1); PLATELET COUNT 242 10^3/uL (134-434); RBC 3.92 M/mm3 (4.00-5.60); RDW 12.4 % (11.9-15.9); WHITE BLOOD COUNT 16.3 K/mm3 (4.0-10.0)
[2022-03-11 07:57] LABS: CALCIUM 8.4 mg/dL (8.5-10.1)
[2022-03-11 07:58] LABS: BLOOD UREA NITROGEN 34.4 mg/dL (7-18); MAGNESIUM 2.7 mg/dL (1.8-2.4)
[2022-03-11 08:01] LABS: BILIRUBIN,TOTAL 0.4 mg/dL (0.2-1); CREATININE 1.6 mg/dL (0.55-1.3); PHOSPHOROUS 3.1 mg/dL (2.5-4.9); TOT PROT 5.8 g/dl (6.4-8.2)
[2022-03-11 09:39] LABS: ANISOCYTOSIS 0; HELMET CELLS 0; HOWELL-JOLLY BODIES 0; MACROCYTOSIS 0; OVALOCYTE 0; ROULEAU 0; SICKELED CELLS 0; TARGET CELLS 0; TEAR DROP CELLS 0; TOXIC GRANULATION 0
[2022-03-11] MEDS: MUPIROCIN 2% TOPICAL OINTMENT FOR DECOLONIZATION NS SCH ×2 (12:00→21:48)
[2022-03-11] MEDS: PANTOPRAZOLE 40 MG TABLET PO SCH (17:30)
[2022-03-11] MEDS: SODIUM ZIRCONIUM CYCLOSILICATE (LOKELMA) 5 GM PACKET PO SCH (17:31)
[2022-03-11] MEDS: ASPIRIN 81 MG CHEWABLE TABLETS PO SCH (17:31)
[2022-03-11] MEDS: CEFTRIAXONE 1 GM in DEXTROSE 5%-WATER - 50 ML IVPB SCH (20:00)
[2022-03-11] MEDS: CHLORHEXIDINE GLUCONATE 4% CLEANSER FOR DECOLONIZATION TP SCH (21:49)
[2022-03-11] MEDS ORDERED: CIPROFLOXACIN 500 MG TABLET (RESTRICTED TO ID) PO SCH (22:30)
[2022-03-11] MEDS: SODIUM CHLORIDE 1,000 ML IV SCH (23:30)
[2022-03-11] MEDS: AZITHROMYCIN IVPB 500 MG/250 ML BAG IVPB SCH (23:35)
[2022-03-12] MEDS: DEXMEDETOMIDINE PREMIX 400 MCG/100 ML BAG IVPB SCH (02:24)
[2022-03-12] MEDS: methylPREDNISolone NA SUCC 40 MG/1 ML VIAL IVPUSH SCH ×4 (02:50→23:32)
[2022-03-12] MEDS: HEPARIN NA (PORCINE) 5,000 UNITS/ML 1ML VIAL SQ SCH ×3 (06:45→21:41)
[2022-03-12 06:59] LABS: HEMATOCRIT 34.7 % (35.4-49); HEMOGLOBIN 11.8 GM/dL (11.7-16.9); MCH 32.4 pg (25.7-33.7); MCHC 33.9 g/dl (32.0-35.9); MEAN CELL VOLUME 95.4 fl (80-96); MEAN PLT VOLUME 7.4 fl (7.5-11.1); PLATELET COUNT 254 10^3/uL (134-434); RBC 3.63 M/mm3 (4.00-5.60); RDW 12.6 % (11.9-15.9); WHITE BLOOD COUNT 19.9 K/mm3 (4.0-10.0)
[2022-03-12 07:15] LABS: BLOOD UREA NITROGEN 36.7 mg/dL (7-18); CALCIUM 8.6 mg/dL (8.5-10.1); MAGNESIUM 2.5 mg/dL (1.8-2.4)
[2022-03-12 07:19] LABS: CREATININE 1.5 mg/dL (0.55-1.3); PHOSPHOROUS 3.1 mg/dL (2.5-4.9)
[2022-03-12] MEDS ORDERED: [UNRECOGNIZED DRUG - OTHER] PO SCH (10:00)
[2022-03-12] MEDS ORDERED: PATIENT'S OWN MEDICATION (NON-FORMULARY) (Nirmatrelvir/Ritonavir 1 EACH Tablet) PO SCH (10:00)
[2022-03-12] MEDS ORDERED: PATIENT'S OWN MEDICATION (NON-FORMULARY) (Esomeprazole Magnesium [Nexium 24hr] 20 MG Capsu PO SCH (10:00)
[2022-03-12] MEDS ORDERED: ASPIRIN COATED 81 MG TABLET.EC PO SCH (10:00)
[2022-03-12] MEDS ORDERED: ZINC PICOLI PO SCH (10:00)
[2022-03-12] MEDS ORDERED: MULTIVITAMINS (DAILY MVI) TABLET (FP) PO SCH (10:00)
[2022-03-12] MEDS ORDERED: ALBUTEROL SO4 0.083% IH SOL 2.5 MG/3 ML VIAL.NEB. NEB SCH (10:00)
[2022-03-12] MEDS ORDERED: FLUTICASONE/UMECLIDIN/VILANTER(100-62.5-25 TRELEGY ELLIPTA) INAHLER IH SCH (10:00)
[2022-03-12] MEDS ORDERED: SAW PALMETTO FRUIT PO SCH (10:00)
[2022-03-12] MEDS ORDERED: LISINOPRIL 20 MG TABLET PO SCH (10:00)
[2022-03-12] MEDS: CEFTRIAXONE 1 GM in DEXTROSE 5%-WATER - 50 ML IVPB SCH (10:58)
[2022-03-12] MEDS: SODIUM ZIRCONIUM CYCLOSILICATE (LOKELMA) 5 GM PACKET PO SCH (10:58)
[2022-03-12] MEDS: CHOLECALCIFEROL (VIT D3) 1,000 UNIT (25 MCG) TABLET PO SCH (10:59)
[2022-03-12] MEDS: ASPIRIN 81 MG CHEWABLE TABLETS PO SCH (10:59)
[2022-03-12] MEDS: PANTOPRAZOLE 40 MG TABLET PO SCH (10:59)
[2022-03-12] MEDS: MUPIROCIN 2% TOPICAL OINTMENT FOR DECOLONIZATION NS SCH ×2 (10:59→21:41)
[2022-03-12] MEDS ORDERED: methylPREDNISolone NA SUCC 40 MG/1 ML VIAL IVPUSH SCH (12:45)
[2022-03-12] MEDS ORDERED: LISINOPRIL 20 MG TABLET PO ONE (14:26)
[2022-03-12] MEDS: LISINOPRIL 20 MG TABLET PO SCH (21:40)
[2022-03-12] MEDS: CHLORHEXIDINE GLUCONATE 4% CLEANSER FOR DECOLONIZATION TP SCH (21:41)
[2022-03-12] MEDS: NIFEdipine E.R 60 MG TABLET PO SCH (21:41)
[2022-03-12] MEDS ORDERED: NIFEdipine E.R 60 MG TABLET PO SCH ×2 (22:00)
[2022-03-12] MEDS: SODIUM CHLORIDE 1,000 ML IV SCH (23:30)
[2022-03-13] MEDS: methylPREDNISolone NA SUCC 40 MG/1 ML VIAL IVPUSH SCH ×3 (05:43→20:45)
[2022-03-13] MEDS: HEPARIN NA (PORCINE) 5,000 UNITS/ML 1ML VIAL SQ SCH ×3 (05:43→22:46)
[2022-03-13] MEDS: LISINOPRIL 20 MG TABLET PO SCH (10:27)
[2022-03-13] MEDS: ASPIRIN 81 MG CHEWABLE TABLETS PO SCH (10:27)
[2022-03-13] MEDS: CHOLECALCIFEROL (VIT D3) 1,000 UNIT (25 MCG) TABLET PO SCH (10:27)
[2022-03-13] MEDS: PANTOPRAZOLE 40 MG TABLET PO SCH (10:28)
[2022-03-13] MEDS: CEFTRIAXONE 1 GM in DEXTROSE 5%-WATER - 50 ML IVPB SCH (10:28)
[2022-03-13] MEDS: SODIUM ZIRCONIUM CYCLOSILICATE (LOKELMA) 5 GM PACKET PO SCH (10:28)
[2022-03-13] MEDS: MUPIROCIN 2% TOPICAL OINTMENT FOR DECOLONIZATION NS SCH (11:35)
[2022-03-13 11:58] LABS: HEMATOCRIT 37.5 % (35.4-49); HEMOGLOBIN 12.3 GM/dL (11.7-16.9); MCH 31.4 pg (25.7-33.7); MCHC 32.8 g/dl (32.0-35.9); MEAN CELL VOLUME 95.9 fl (80-96); MEAN PLT VOLUME 7.6 fl (7.5-11.1); PLATELET COUNT 302 10^3/uL (134-434); RBC 3.91 M/mm3 (4.00-5.60); RDW 12.8 % (11.9-15.9); WHITE BLOOD COUNT 15.2 K/mm3 (4.0-10.0)
[2022-03-13 12:27] LABS: CALCIUM 8.9 mg/dL (8.5-10.1)
[2022-03-13 12:28] LABS: ALBUMIN 3.2 g/dl (3.4-5.0); MAGNESIUM 2.8 mg/dL (1.8-2.4)
[2022-03-13 12:31] LABS: CREATININE 1.5 mg/dL (0.55-1.3); PHOSPHOROUS 2.8 mg/dL (2.5-4.9)
[2022-03-13 12:33] LABS: BILIRUBIN,TOTAL 0.6 mg/dL (0.2-1); TOT PROT 5.8 g/dl (6.4-8.2)
[2022-03-13 13:13] LABS: ANISOCYTOSIS 0; HELMET CELLS 0; HOWELL-JOLLY BODIES 0; MACROCYTOSIS 0; OVALOCYTE 0; ROULEAU 0; SICKELED CELLS 0; TARGET CELLS 0; TEAR DROP CELLS 0; TOXIC GRANULATION 0
[2022-03-13 15:20] VITALS: RESP 18
[2022-03-13] MEDS ORDERED: ACETAMINOPHEN 325 MG TABLET (FP) PO PRN (19:42)
[2022-03-13] MEDS: NIFEdipine E.R 60 MG TABLET PO SCH (22:46)
[2022-03-14] MEDS: methylPREDNISolone NA SUCC 40 MG/1 ML VIAL IVPUSH SCH ×2 (04:40→14:08)
[2022-03-14] MEDS: HEPARIN NA (PORCINE) 5,000 UNITS/ML 1ML VIAL SQ SCH ×2 (06:44→14:08)
[2022-03-14 08:28] LABS: HEMATOCRIT 37.2 % (35.4-49); HEMOGLOBIN 12.7 GM/dL (11.7-16.9); MCH 32.7 pg (25.7-33.7); MCHC 34.2 g/dl (32.0-35.9); MEAN CELL VOLUME 95.6 fl (80-96); MEAN PLT VOLUME 7.5 fl (7.5-11.1); PLATELET COUNT 279 10^3/uL (134-434); RBC 3.89 M/mm3 (4.00-5.60); RDW 12.8 % (11.9-15.9); WHITE BLOOD COUNT 12.3 K/mm3 (4.0-10.0)
[2022-03-14 08:50] LABS: ALBUMIN 3.3 g/dl (3.4-5.0); BLOOD UREA NITROGEN 39.1 mg/dL (7-18); MAGNESIUM 2.8 mg/dL (1.8-2.4)
[2022-03-14 08:52] LABS: PHOSPHOROUS 3.8 mg/dL (2.5-4.9)
[2022-03-14 08:53] LABS: CREATININE 1.5 mg/dL (0.55-1.3)
[2022-03-14 08:54] LABS: BILIRUBIN,TOTAL 0.8 mg/dL (0.2-1); TOT PROT 5.9 g/dl (6.4-8.2)
[2022-03-14] MEDS ORDERED: PANTOPRAZOLE 40 MG TABLET PO SCH (10:00)
[2022-03-14] MEDS ORDERED: SODIUM ZIRCONIUM CYCLOSILICATE (LOKELMA) 5 GM PACKET PO SCH (10:00)
[2022-03-14] MEDS ORDERED: CEFTRIAXONE 1 GM in DEXTROSE 5%-WATER - 50 ML IVPB SCH (10:00)
[2022-03-14] MEDS ORDERED: CHOLECALCIFEROL (VIT D3) 1,000 UNIT (25 MCG) TABLET PO SCH (10:00)
[2022-03-14] MEDS ORDERED: ASPIRIN 81 MG CHEWABLE TABLETS PO SCH (10:00)
[2022-03-14] MEDS ORDERED: LISINOPRIL 20 MG TABLET PO SCH (10:00)
[2022-03-14 15:06] VITALS: BP 155/80; PULSE 68; TEMP 99.3
== END 2022-03-14 16:50 | disposition home or self-care (01) | DRG 177 ==
LOC: FER 13:25 → JICU 22:42 → J7W 03-13 06:20
PROVIDERS: ADMIT Internal Medicine; ATTEND Internal Medicine
DX: U07.1 COVID-19 (principal); J12.82 Pneumonia due to coronavirus disease 2019; J96.01 Acute respiratory failure with hypoxia; J44.1 Chronic obstructive pulmonary disease with (acute) exacerbation; N17.9 Acute kidney failure, unspecified; E87.1 Hypo-osmolality and hyponatremia; F05 Delirium due to known physiological condition; J90 Pleural effusion, not elsewhere classified; N39.0 Urinary tract infection, site not specified; E86.0 Dehydration; E87.5 Hyperkalemia; K21.9 Gastro-esophageal reflux disease without esophagitis; I12.9 Hypertensive chronic kidney disease with stage 1 through stage 4 chronic kidney disease, or unspecified chronic kidney disease; N18.9 Chronic kidney disease, unspecified; N40.0 Benign prostatic hyperplasia without lower urinary tract symptoms; K44.9 Diaphragmatic hernia without obstruction or gangrene; K57.90 Diverticulosis of intestine, part unspecified, without perforation or abscess without bleeding; D72.829 Elevated white blood cell count, unspecified; Z87.11 Personal history of peptic ulcer disease; G47.33 Obstructive sleep apnea (adult) (pediatric)
CPT/HCPCS: 0241U-QW; 36415; 36600; 71045-TC-FY; 71250-TC; 80048; 80053; 81003; 81015; 82436; 82550; 82553; 82570; 82728; 82803; 83605; 83735; 83880; 84100; 84133; 84300; 84443; 84479; 84484; 84540; 85025; 85027; 85610; 85730; 87070; 87086; 87205; 93005; 93010; 93306-TC; 94660; 97116-GP; 97161-GP; 99285-25; C9803-CS; J1644; U0003; U0005

== ENCOUNTER 2024-06-01 08:04 | Inpatient (IN) | payer OTHER, BC ==
[2024-06-01] MEDS ORDERED: ALBUTEROL SO4 2.5/IPRATROPIUM 0.5 INH SOL 3 ML VIAL.NEB. NEB ONE ×2 (08:25→12:16)
[2024-06-01] MEDS: ALBUTEROL SO4 2.5/IPRATROPIUM 0.5 INH SOL 3 ML VIAL.NEB. NEB ONE ×2 (08:40)
[2024-06-01] MEDS ORDERED: methylPREDNISolone NA SUCC 125 MG/2 ML VIAL ONE (08:41)
[2024-06-01 08:44] LABS: VENOUS BASE EXCESS -0.5 mmol/L (-2-2); VENOUS O2 SATURATION 32.7 % (70-80); VENOUS PCO2 37.4 mmHg (38-52); VENOUS PH 7.419 (7.310-7.410)
[2024-06-01] MEDS: methylPREDNISolone NA SUCC 125 MG/2 ML VIAL IVPB ONE (08:50)
[2024-06-01 08:53] LABS: BASO % 0.7 % (0-2.0); EOS % 1.7 % (0-4.5); HEMATOCRIT 42.7 % (35.4-49); HEMOGLOBIN 13.8 GM/dL (11.7-16.9); LYMPH % 8.5 % (8-40); MCH 31.5 pg (25.7-33.7); MCHC 32.4 g/dl (32.0-35.9); MEAN CELL VOLUME 97.4 fl (80-96); MEAN PLT VOLUME 7.7 fl (7.5-11.1); MONO % 6.2 % (3.8-10.2); NEUT % 82.9 % (42.8-82.8); PLATELET COUNT 193 10^3/uL (134-434); RBC 4.38 M/mm3 (4.00-5.60); RDW 13.1 % (11.9-15.9); WHITE BLOOD COUNT 10.5 K/mm3 (4.0-10.0)
[2024-06-01 08:59] LABS: POTASSIUM 4.8 mmol/L (3.5-5.1)
[2024-06-01 09:02] LABS: ALBUMIN 3.3 g/dl (3.4-5.0); BLOOD UREA NITROGEN 27.9 mg/dL (7-18); CALCIUM 9.1 mg/dL (8.5-10.1); INR 0.92 (0.83-1.09); MAGNESIUM 2.2 mg/dL (1.8-2.4); PROTHROMBIN TIME (PATIENT) 10.4 SEC (9.7-13.0)
[2024-06-01 09:05] LABS: ACTIVATED PTT 30.3 SECONDS (25.2-36.5)
[2024-06-01 09:06] LABS: CREATININE 1.4 mg/dL (0.55-1.3)
[2024-06-01 09:07] LABS: BILIRUBIN,TOTAL 0.9 mg/dL (0.2-1); TOT PROT 5.9 g/dl (6.4-8.2)
[2024-06-01 09:11] LABS: N-TERMINAL BNP 344.7 pg/ml (5-450)
[2024-06-01] MEDS ORDERED: CEFTRIAXONE 1 G/50 ML PREMIX 50 ML IVPB ONE (10:38)
[2024-06-01] MEDS ORDERED: AZITHROMYCIN IVPB 500 MG/250 ML BAG IVPB ONE (10:38)
[2024-06-01] MEDS: CEFTRIAXONE 1 GM in DEXTROSE 5%-WATER - 100 ML IVPB ONE (10:44)
[2024-06-01] MEDS: AZITHROMYCIN IVPB 500 MG in DEXTROSE 5%-WATER - 250 ML IVPB ONE (10:45)
[2024-06-01] MEDS ORDERED: ALBUTEROL SO4 2.5/IPRATROPIUM 0.5 INH SOL 3 ML VIAL.NEB. NEB PRN (11:36)
[2024-06-01] MEDS ORDERED: ALBUTEROL SO4 0.083% IH SOL 2.5 MG/3 ML VIAL.NEB. NEB PRN (12:00)
[2024-06-01] MEDS ORDERED: FUROSEMIDE 40 MG/4 ML INJECTABLE VIAL ONE (12:16)
[2024-06-01] MEDS: ALBUTEROL SO4 2.5/IPRATROPIUM 0.5 INH SOL 3 ML VIAL.NEB. NEB SCH (12:32)
[2024-06-01] MEDS: FUROSEMIDE 40 MG/4 ML INJECTABLE VIAL IVPUSH SCH (12:32)
[2024-06-01] MEDS: methylPREDNISolone NA SUCC 40 MG/1 ML VIAL IVPUSH SCH (12:34)
[2024-06-01 16:56] VITALS: RESP 20; BMI 30.5
[2024-06-01] MEDS: HEPARIN NA (PORCINE) 5,000 UNITS/ML 1ML VIAL SQ SCH (22:18)
[2024-06-02] MEDS: AZITHROMYCIN 250 MG TABLET PO SCH (09:21)
[2024-06-02] MEDS: methylPREDNISolone NA SUCC 40 MG/1 ML VIAL IVPUSH SCH ×2 (09:22→21:40)
[2024-06-02] MEDS: FAMOTIDINE 20 MG TABLET PO SCH (09:22)
[2024-06-02] MEDS: LISINOPRIL 20 MG TABLET PO SCH (09:22)
[2024-06-02] MEDS: TAMSULOSIN HCL 0.4 MG CAP PO SCH (09:22)
[2024-06-02] MEDS: CEFTRIAXONE 1 G/50 ML PREMIX 50 ML IVPB SCH (09:23)
[2024-06-02 09:53] LABS: BASO % 0.3 % (0-2.0); HEMATOCRIT 38.5 % (35.4-49); HEMOGLOBIN 12.6 GM/dL (11.7-16.9); LYMPH % 5.2 % (8-40); MCH 31.8 pg (25.7-33.7); MCHC 32.8 g/dl (32.0-35.9); MEAN CELL VOLUME 96.8 fl (80-96); MEAN PLT VOLUME 8.2 fl (7.5-11.1); NEUT % 91.5 % (42.8-82.8); PLATELET COUNT 182 10^3/uL (134-434); RBC 3.98 M/mm3 (4.00-5.60); RDW 12.9 % (11.9-15.9); WHITE BLOOD COUNT 14.1 K/mm3 (4.0-10.0)
[2024-06-02] MEDS ORDERED: FLUTICASONE/UMECLIDIN/VILANTER(100-62.5-25 TRELEGY ELLIPTA) INAHLER IH SCH (10:00)
[2024-06-02] MEDS ORDERED: AZITHROMYCIN IVPB 500 MG in DEXTROSE 5%-WATER - 250 ML IVPB SCH (10:00)
[2024-06-02] MEDS ORDERED: CEFTRIAXONE 1 GM in DEXTROSE 5%-WATER - 100 ML IVPB SCH (10:00)
[2024-06-02 10:26] LABS: BLOOD UREA NITROGEN 26.9 mg/dL (7-18)
[2024-06-02 10:29] LABS: CREATININE 1.3 mg/dL (0.55-1.3)
[2024-06-02 11:10] LABS: ANISOCYTOSIS 2+; MACROCYTOSIS 2+
[2024-06-02] MEDS: BUDESONIDE/FORMETEROL FUMARATE 160/4.5 mcg INHALER IH SCH (12:05)
[2024-06-03 02:56] VITALS: TEMP 98.4
[2024-06-03 09:36] LABS: HEMOGLOBIN 13.4 GM/dL (11.7-16.9); MCHC 33.5 g/dl (32.0-35.9); MEAN CELL VOLUME 95.6 fl (80-96); MEAN PLT VOLUME 8.1 fl (7.5-11.1); PLATELET COUNT 205 10^3/uL (134-434); RBC 4.19 M/mm3 (4.00-5.60); RDW 13.3 % (11.9-15.9); WHITE BLOOD COUNT 12.8 K/mm3 (4.0-10.0)
[2024-06-03 09:47] LABS: POTASSIUM 4.1 mmol/L (3.5-5.1)
[2024-06-03 09:51] LABS: ALBUMIN 3.2 g/dl (3.4-5.0)
[2024-06-03 09:55] LABS: BLOOD UREA NITROGEN 30.2 mg/dL (7-18)
[2024-06-03 09:56] LABS: BILIRUBIN,TOTAL 0.7 mg/dL (0.2-1); CREATININE 1.4 mg/dL (0.55-1.3); TOT PROT 6.2 g/dl (6.4-8.2)
[2024-06-03 10:13] VITALS: BP 139/61; PULSE 73
== END 2024-06-03 17:00 | disposition home or self-care (01) | DRG 194 ==
LOC: JER 08:04 → JERBED 10:36 → OBSVTOIN 11:32 → J6S 15:47
PROVIDERS: ADMIT Internal Medicine; ATTEND Internal Medicine
DX: J18.9 Pneumonia, unspecified organism (principal); J44.0 Chronic obstructive pulmonary disease with (acute) lower respiratory infection; J44.1 Chronic obstructive pulmonary disease with (acute) exacerbation; N40.0 Benign prostatic hyperplasia without lower urinary tract symptoms; I10 Essential (primary) hypertension; E11.9 Type 2 diabetes mellitus without complications; I27.20 Pulmonary hypertension, unspecified; K21.9 Gastro-esophageal reflux disease without esophagitis; K44.9 Diaphragmatic hernia without obstruction or gangrene; I12.9 Hypertensive chronic kidney disease with stage 1 through stage 4 chronic kidney disease, or unspecified chronic kidney disease; E11.22 Type 2 diabetes mellitus with diabetic chronic kidney disease; N18.9 Chronic kidney disease, unspecified; Z87.11 Personal history of peptic ulcer disease
CPT/HCPCS: 0241U-QW; 36415; 71045-TC-FY; 80048; 80053; 80061; 82803; 83036; 83735; 83880; 84443; 84484; 85025; 85027; 85610; 85730; 87070; 87205; 87899; 93005; 93010; 93306-TC; 94640; 94761; 97116-GP; 97161-GP; 99285-25; G0378; J1644